=== PATIENT | male | born 1935 | race Caucasian/White ===

== ENCOUNTER 2022-06-03 13:05 | Inpatient (IN) | payer OTHER, SELFPAY ==
[2022-06-03] VITALS (9 sets, daily range): BP systolic 101–125; BP diastolic 57–77; PULSE 74–89; RESP 16–19; TEMP 36.5–37.4; O2SAT 95–96; BMI 21.4; BMI 20.9
--- NOTE | 2022-06-03 13:20 | RAD_ITS ---
STUDY: X-RAY CHEST REASON FOR EXAM: Male, 86 years old. Chest pain. TECHNIQUE: Single AP portable view of the chest. COMPARISON: None. FINDINGS: EKG electrodes are seen. The lungs are clear and expanded. There is no demonstrated pleural abnormality. Normal size heart. Normal mediastinum and thiago. Normal visualized pulmonary arteries. There is atherosclerotic tortuosity of the aortic arch and descending thoracic aorta. There are diffuse degenerative changes of the visualized thoracic spine. There is degenerative osteoarthritis of the bilateral shoulders. There is no demonstrated abnormality of the visualized soft tissue structures of the upper abdomen. RAD/Chest 1 View (Portable) IMPRESSION: No acute abnormality is seen. Electronically Signed: Hemant Elaine MD at 13:33 EST ,
--- NOTE | 2022-06-03 13:25 | ED.VIS.CHEST ---
HPI History of Present Illness Chief Complaint: Chest Pain Detail of Chief Complaint: Nonexertional. No dyspnea. Informant: patient Onset/Context/Timing Onset: Days Activity at onset: gradual Timing: Intermittent Quality: Positive for Indigestion Location: Substernal Current Severity: Mild Maximum Severity: Mild Worsened By: - (Primarily supine.); Not Worsened By Exertion, Movement of Arm, Movement of Torso, Eating, Palpation, Breathing or Coughing Relieved By: Nothing Associated Symptoms: Positive for Acid Reflux; Negative for Nausea, Vomiting, Diaphoresis, Dyspnea, Cough, Fever, Lightheadedness or Palpitations Narrative Narrative: 85-year-old male past medical history of reflux. He has been using a vibrating device for vascular pain in his back. States he thinks that caused him to have an elevated heart rate. He quit using it. Had some chest discomfort for last several days. Okay at rest. Not associated with exertion. No nausea or diaphoresis. Does not radiate to his arm back or jaw. Worse supine. Prior Similar Symptoms: Yes Recent Illness/Hospitalization: No CVD Risk Factors: Negative for Hypertension, Diabetes, Hypercholesterolemia, Family History 1' </=55 or Smoking PE Risk Factors: Negative for Recent Travel/Surgery, Recent Immobilization, Prior DVT or PE, Cancer or OCP + Smoking + >/=35 TAD Risk Factors: Negative for Marfan's Syndrome [facility] Medical History GERD (gastroesophageal reflux disease) Home Medications omeprazole magnesium 20 mg tablet,delayed release (Prilosec OTC) 20 mg PO QWEEK 06/03/22 [History Last Taken Unknown] Allergy/AdvReac Type Severity Reaction Status Date / Time No Known Allergies Allergy Verified 06/03/22 13:11 Social History Smoking Status: Never smoker ROS ROS ED ROS Narrative Chest pain supine. Nonexertional. No shortness of breath. Review of Systems ROS Unobtainable: Denies due to encephalopathy Constitutional Constitutional ED: Denies chills or fever(s) Eyes Eyes: Reports none ENT ENT ED: Denies ear pain or rhinorrhea Cardiovascular Cardiovascular: Reports as per HPI and chest pain; Denies palpitations or racing heartbeat Respiratory/Chest Respiratory/Chest: Denies cough or dyspnea Gastrointestinal Gastrointestinal: Denies constipation, diarrhea, melena, nausea or vomiting Genitourinary Genitourinary ED: Denies dysuria or hematuria Musculoskeletal Musculoskeletal: Denies arthralgias Integumentary Denies abscess Neurologic Neurologic: Denies headache(s) Psychiatric Psychiatric: Denies anxiety Endocrine Endocrinology: Denies cold intolerance Hematologic/Lymphatic Hematologic/Lymphatic: Denies easy bleeding or easy bruising Allergic/Immunologic Allergic/Immunologic ED: Denies mouth swelling or tongue swelling EXAM Physical Exam Narrative Exam Narrative: 86-year-old male known no acute distress. Vital signs stable afebrile. Pulse ox 96% room air no hypoxia. H EENT exam unremarkable. Moist with members. Neck nontender no JVD. Lungs clear to auscultation bilateral. Heart regular rhythm rate about 85 no murmur. Chest wall nontender. Abdomen soft nontender. Moving all 4 extremities. Calves are nontender without edema or cords. Neurologically patient is awake and alert with no focal motor deficit. Const Vital Signs: 06/03/22 13:07 06/03/22 13:12 06/03/22 13:18 Temperature 97.7 F L Temperature Source Oral Pulse Rate 89 Respiratory Rate 16 Respiratory Effort Normal Non-Labored Blood Pressure 115/63 Blood Pressure Mean 80 Pulse Ox 96 96 Oxygen Delivery Method Room Air Room Air 06/03/22 13:37 06/03/22 14:26 Temperature 97.7 F L Temperature Source Oral Pulse Rate 84 74 Respiratory Rate 19 H 18 Respiratory Effort Blood Pressure 101/58 L 105/57 L Blood Pressure Mean 72 73 Pulse Ox 95 96 Oxygen Delivery Method Room Air Room Air Positive well nourished and well developed; Negative for obese, cachectic, contractures or unkempt General Appearance ED: well developed and NAD; Negative for unkempt, cachectic, contractures or pallor Nutritional Appearance: Negative for cachectic or obese HEENT Reports moist mucous membranes; Denies dry mucous membranes normocephalic and atraumatic; Negative for trauma or tenderness Mouth ED: No dry mucous membranes Mouth: No dry mucous membranes Eyes PERRL and EOMs intact bilaterally General Eye ED: Negative for pale conjunctiva, scleral icterus or other Neck no lymphadenopathy, supple and no JVD General: Negative for tenderness Chest Wall inspection of chest normal and palpation of chest normal Chest: Negative for tenderness Resp normal respiratory effort and clear to auscultation bilaterally Effort and Inspection: Negative for respiratory distress Auscultation: Negative for rales, rhonchi or wheezes Cardio regular rate, regular rhythm, S1 normal heart sound, S2 normal heart sound and no murmurs Rate: Negative for bradycardia or tachycardic Rhythm: Negative for abnormal rhythm Peripheral Pulses: pulses 2+ throughout GI normal to inspection, nondistended, normoactive bowel sounds, soft to palpation, non-tender, non-distended and no masses Auscultation: Negative for hyperactive bowel sounds Back/Spine no CVA tenderness and no thoracic nor lumbar tenderness General Back: Negative for CVA tenderness Cervical Spine: Negative for cervical spine tenderness Extremity normal to inspection General Extremety ED: Negative for edema or pulses abnormal General Extremity: Negative for edema or pulses abnormal Neuro oriented x3 and CN's II-XII intact bilaterally Sensorium / Orientation: awake, alert, oriented to person, oriented to place and oriented to time; Negative for confused, lethargic, stuporous or other Motor Exam: strength 5/5 throughout Psych mental status grossly normal Appearance: Negative for unkempt Attitude: No agitated Mood & Affect: Negative for depressed, anxious or tearful Skin no rashes or lesions noted and no wounds General Skin Exam: Negative for jaundice or pallor Rashes: No rashes noted Trauma: Negative for abrasion or laceration Heart Score History: Slightly/Non-Suspicious ECG: Normal Age: >/= 65 years Risk Factors: No Risk Factors Troponin: </= Normal Limit Score: 2 MDM MDM MDM Narrative Medical decision making narrative: 86-year-old male non-smoker with nonexertional chest discomfort. This is atypical chest pain. No dyspnea. He will undergo cardiac work-up. Currently symptom-free and pain-free. Patient is still very active and is having no exertional symptoms. No prior DVT or PE or risk factors. Repeat exam patient is doing well at 3:15 PM. I went over his test results. His atypical pain with an elevated troponin. I explained he and his family I cannot say it is or is not cardiac in etiology. I will speak to the hospitalist he will be admitted for further evaluation and work-up. History & Record Review Discussion w/independent historian: Patient and Family Lab Data Attestation: I reviewed the patient's lab results. Lab results narrative: CBC showed a white count 12.9. H&H of 13.1 and 39.5. Electrolytes unremarkable sodium 135. Gap of 8 BUN of 20 creatinine 1.3. Glucose 223. Troponin is elevated 116. No old labs available for comparison. No prior troponins for comparison. Labs: Laboratory Results - last 24 hr 06/03/22 06/03/22 12:32 12:32 WBC 12.9 H RBC 4.12 L Hgb 13.1 Hct 39.5 L MCV 95.9 H MCH 31.8 MCHC 33.2 RDW Std Deviation 49.1 H RDW Coeff of Luis Alberto 13.8 Plt Count 233 MPV 10.0 Immature Gran % (Auto) 0.400 Neut % (Auto) 71.4 H Lymph % (Auto) 8.8 L [place] % (Auto) 19.1 H Eos % (Auto) 0.1 Baso % (Auto) 0.2 Absolute Neuts (auto) 9.2 H Absolute Lymphs (auto) 1.13 Nucleated RBC % 0 Differential Comment SCANNED Diff Path Review May foll Sodium 135 L Potassium 3.9 Chloride 103 Carbon Dioxide 24.0 Anion Gap 8 BUN 20 H Creatinine 1.30 Estim Creat Clear Calc 36.81 Est GFR (MDRD) Af Amer 67 Est GFR (MDRD) Non-Af 56 L BUN/Creatinine Ratio 15.4 Glucose 223 H Calcium 8.8 Troponin I High Sens 116 H Radiography Chest X-Ray - ED: 1 View, Read by ED Physician, Read by Radiologist, Heart, Lungs, Mediastinum, Bony Structures, No Acute Disease and Chronic Changes Diagnostic Testing: Clinical Impression(s) from Imaging Studies Chest X-Ray 06/03/22 13:20 IMPRESSION: No acute abnormality is seen. Electronically Signed: Hemant Elaine MD at 13:33 EST , Chest x-ray, portable, single view interpreted by myself and the radiologist shows no acute abnormality. Chronic changes. Rhythm Strip Rhythm Strip: Sinus Rhythm Rate: 85 Ectopy: None EKG Initial EKG: Attestation: I personally reviewed and interpreted this EKG as follows: Interpretation: Sinus Rhythm and No Acute Injury Pattern Comments: Normal sinus rhythm rate 85 no signs of acute NM or ischemia. No old EKGs available for comparison. Prior EKG tracings: not available for review Prior: No Prior Discharge Plan Triage Chief Complaint: Chest Pain ED Provider: Denis Hastings Dx/Rx/DC Orders Clinical Impression: Chest pain, Elevated troponin Prescriptions: No Action omeprazole magnesium [Prilosec OTC] 20 mg Tablet,Delayed Release (Dr/Ec) 20 mg PO QWEEK Primary Care Provider: Theo Francois Referrals: Theo Francois DO [Primary Care Provider] - Disposition Disposition: Acute Care Hospital [facility]
[2022-06-03 13:29] LABS: Absolute Lymphocyte Count 1.13 X10^3/uL (0.83-4.51); Absolute Neutrophil Count 9.2 X10^3/uL (2.0-7.7); Basophil# 0.03 X10^3/uL; Basophil% 0.2 % (0-1); Eosinophil# 0.01 X10^3/uL; Eosinophils% 0.1 % (0-5); Hematocrit 39.5 % (40-54); Hemoglobin 13.1 g/dL (13.0-16.5); Lymphocyte # 1.13 X10^3/ul (0.83-4.51); Lymphocyte % 8.8 % (19-41); Mean Corp Hgb Conc 33.2 g/dL (32-36); Mean Corpuscular Hgb 31.8 pg (27.0-32.0); Mean Corpuscular Volume 95.9 fL (80-94); Monocyte# 2.46 X10^3/uL; Monocyte% 19.1 % (0-10); NRBC Flagged by Analyzer 0 % (0-5); Neutrophil # 9.19 X10^3/uL (2.7-7.7); Neutrophil % 71.4 % (47-70); POSITIVE DIFFERENTIAL YES; Platelet Count 233 K/mm3 (150-450); RBC Distribution Width CV 13.8 % (11.6-14.6); RBC Distribution Width SD 49.1 fl (35.1-43.9); Red Blood Count 4.12 M/mm3 (4.6-6.2); White Blood Count 12.9 K/mm3 (4.4-11.0)
[2022-06-03 13:34] LABS: Differential Indicated SCAN CRITERIA MET
[2022-06-03 13:39] LABS: Anion Gap 8 (5-15); BUN 20 mg/dL (7-18); BUN/Creat Ratio 15.4 RATIO (10-20); Calcium,Total 8.8 mg/dL (8.5-10.1); Chloride 103 mmol/L (98-107); EST Glomerular Filtration Rate 56 mL/min (>60); Est Glom Filt Rate - Afr Amer 67 mL/min (>60); Estimated Creatinine Clearance 36.81 ml/min; Glucose 223 mg/dL (74-106); Potassium 3.9 mmol/L (3.5-5.1); Sodium Level 135 mmol/L (136-145); Troponin-I HS (w/2H Reflex) 116 pg/mL (3.0-78.0)
[2022-06-03 14:04] LABS: Differential Comment SCANNED
--- NOTE | 2022-06-03 15:17 | PCM.HP.STD ---
HPI - General General Date of Admission: 06/03/22 Date of Service: 06/03/22 Chief Complaint: chest pain HPI Narrative JEREMY GONZALEZ, is a 86 M with a PMH as outlined who presents via the ED on 06/03/2022 with a complaint of chest pain. Chest pain had been going on for several days. He says he used a vibrating device for back pain and he thought it had stimulated palpitations. He subsequently started having chest pain which had been going for several days. He had nausea or shortness of breath or increased sweating and pain did not radiate anywhere. He has not had any heart disease in the past. Review of systems otherwise negative. Vitals in the ED were blood pressure 105/57, pulse rate of 74, respiratory rate of 18 and oxygen sats of 96% on room air. CBC showed WBC of 12.9 and hemoglobin of 13.1 as well as platelets of 233. Chemistry showed sodium of 135 with BUN of 20 and creatinine of 1.3. Initial troponin was 116. Chest x-ray showed no acute cardiopulmonary process and EKG showed no acute ST changes. He has been admitted to be managed for chest pain rule out ACS. [facility] Medical History (Updated 06/04/22 @ 12:18 by Joya Lambert) Atherosclerosis of coronary artery of [place] heart without angina pectoris GERD (gastroesophageal reflux disease) Home Medications omeprazole magnesium 20 mg tablet,delayed release (Prilosec OTC) 20 mg PO QWEEK GERD 06/03/22 [History Last Taken 06/03/22] Allergy/AdvReac Type Severity Reaction Status Date / Time No Known Allergies Allergy Verified 06/03/22 13:11 Surgical History (Updated 06/04/22 @ 12:18 by Joya Lambert) History of appendectomy History of coronary artery stent placement (~06/04/22) Social History Smoking Status: Never smoker ROS Constitutional Constitutional: Denies anorexia, chills, fatigue or fever(s) Eyes Eyes: Denies change in vision ENT HEENT: Denies dysphagia, headache(s), nasal congestion or sore throat Cardiovascular Cardiovascular: Reports chest pain; Denies dyspnea on exertion, edema, lightheadedness, orthopnea, palpitations, rapid heart rate or syncope Respiratory/Chest Respiratory/Chest: Denies cough, dyspnea, productive cough, shortness of breath at rest or shortness of breath with exertion Gastrointestinal Gastrointestinal: Denies abdominal pain, diarrhea, nausea or vomiting Genitourinary Genitourinary: Denies burning urination or dysuria Musculoskeletal Musculoskeletal: Denies arthralgias, joint pain or joint swelling Neurologic Neurologic: Denies confusion, dizziness, focal weakness, headache(s), numbness, seizures or syncope Psychiatric Psychiatric: Denies anxiety Endocrine Endocrinology: Denies change in body appearance Hematologic/Lymphatic Hematologic/Lymphatic: Denies anemia Vital Signs Vital Signs Vital Signs: 06/03/22 13:07 06/03/22 13:12 06/03/22 13:18 Temperature 97.7 F L Temperature Source Oral Pulse Rate 89 Respiratory Rate 16 Respiratory Effort Normal Non-Labored Blood Pressure 115/63 Blood Pressure Mean 80 Pulse Ox 96 96 Oxygen Delivery Method Room Air Room Air 06/03/22 13:37 06/03/22 14:26 Temperature 97.7 F L Temperature Source Oral Pulse Rate 84 74 Respiratory Rate 19 H 18 Respiratory Effort Blood Pressure 101/58 L 105/57 L Blood Pressure Mean 72 73 Pulse Ox 95 96 Oxygen Delivery Method Room Air Room Air Weight Weight: 140 lb 10.479 oz Body Mass Index (BMI) 21.4 Physical Exam Const alert, oriented x3, no apparent distress and average body habitus HEENT normocephalic, head/scalp atraumatic and hearing grossly normal bilaterally Mouth: oral and palatal mucosa normal Eyes PERRL, EOMs intact bilaterally and conjunctivae normal Neck no lymphadenopathy and supple Resp normal respiratory effort, no retractions, no use of accessory muscles and clear to auscultation bilaterally Cardio regular rate, regular rhythm, S1 normal heart sound, S2 normal heart sound and no murmurs GI normal to inspection, nondistended, normoactive bowel sounds, soft to palpation, non-tender and non-distended Extremity normal to inspection, full ROM and no clubbing, cyanosis or edema Neuro oriented x3, CN's II-XII intact bilaterally, moves all extremities and no focal motor deficits Sensorium / Orientation: awake and alert Motor Exam: strength 5/5 throughout Psych affect normal Results Lab / Micro Data Result Diagrams: 06/04/22 04:16 06/04/22 04:16 Labs: Laboratory Results - last 24 hr 06/03/22 12:32: WBC 12.9 H, RBC 4.12 L, Hgb 13.1, Hct 39.5 L, MCV 95.9 H, MCH 31.8, MCHC 33.2, RDW Std Deviation 49.1 H, RDW Coeff of Luis Alberto 13.8, Plt Count 233, MPV 10.0, Immature Gran % (Auto) 0.400, Neut % (Auto) 71.4 H, Lymph % (Auto) 8.8 L, [place] % (Auto) 19.1 H, Eos % (Auto) 0.1, Baso % (Auto) 0.2, Absolute Neuts (auto) 9.2 H, Absolute Lymphs (auto) 1.13, Nucleated RBC % 0, Differential Comment SCANNED, Diff Path Review July06/03/22 12:32: Sodium 135 L, Potassium 3.9, Chloride 103, Carbon Dioxide 24.0, Anion Gap 8, BUN 20 H, Creatinine 1.30, Estim Creat Clear Calc 36.81, Est GFR (MDRD) Af Amer 67, Est GFR (MDRD) Non-Af 56 L, BUN/Creatinine Ratio 15.4, Glucose 223 H, Calcium 8.8, Troponin I High Sens 116 H Rhythm Strip Rhythm Strip: Sinus Rhythm Rate: 85 Ectopy: None Radiology Impression Chest X-Ray 06/03/22 13:20 IMPRESSION: No acute abnormality is seen. Electronically Signed: Heamnt Elaine MD at 13:33 EST Reading Location ID and State: [address] [place] [address] , Service support , Assessment & Plan Assessment/Plan (1) Chest pain: (2) Elevated troponin: (3) Non-ST elevation (NSTEMI) myocardial infarction: PLAN: Plan #Nonstemi Admit to PCU. Patient started having complaint of chest pain a few days ago which has persisted. Has not had chest pain like this before. Initial troponin was 116. EKG showed no acute ST changes. We will cycle troponins. P.o. aspirin 81 mg daily. Sublingual nitroglycerin. Consult cardiology. 2D echo. #DVT prophylaxis: Lovenox CODE STATUS: Full code Patient and his family counseled extensively about different types of CODE STATUS including full code, DNR CCA and DNR CCA. Patient elects to be full code. Total [id number] time 17 minutes. Charges/Coding Visit Charges Inpatient E&M: 67251 Init Hosp L3 Procedures Hospitalists Procedures: 70138 Advncd Care Plan 30 Min
[2022-06-03 15:20] LABS: Reflex Troponin-HS? (from REC) Y
[2022-06-03 16:21] LABS: Troponin-I HS 113 pg/mL (3.0-78.0)
[2022-06-03 19:26] LABS: Troponin-I HS 120 pg/mL (3.0-78.0)
--- NOTE | 2022-06-03 19:54 | CON.PCM.CA_ITS ---
Assessment & Plan Assessment/Plan (1) Chest pain: PLAN: The patient presents with chest pain. The present time it is concerning for angina pectoris as there is been no other definitive etiology to explain it. He has undergone cardiovascular evaluation with cardiac enzymes and ECGs and a chest x-ray. His cardiac enzymes are elevated and appear to be without significant change. This does raise concern as to whether or not he has had some form of underlying acute coronary syndrome event. The same time he does need to be monitored for any obvious noncardiovascular issues that would explain these findings. He will be asked undergo further evaluation. This will include a transthoracic echocardiogram to evaluate his left ventricular wall motion and systolic function. He was also asked to consider further evaluation with a diagnostic cardiac catheterization to evaluate for underlying CAD. This was discussed with the patient, his spouse, and his son. They state they want to discuss with other family members prior to proceeding in that fashion. In the interim he will continue medical therapy. He has been placed on aspirin 81 mg p.o. daily as well as atorvastatin 40 mg p.o. daily. He is also receiving subcutaneous enoxaparin. He can be considered for other agents to include nitrates if needed as well as consideration for beta-rob therapy. (2) Non-ST elevation (NSTEMI) myocardial infarction: PLAN: The patient's cardiac enzymes are concerning for a non-ST segment elevation PA. He has had no other etiologies such as CVA, thromboembolic disease, renal insufficiency, sepsis, etc. to definitively explain his findings thus far. Thus he will continue a cardiovascular monitoring program. He will continue conservative medical management. He will proceed with noninvasive valuation at this time. He is considering his options with respect to diagnostic cardiac catheterization. (3) GERD (gastroesophageal reflux disease): PLAN: The patient states that he was diagnosed with GERD by an EGD in the past. He admits he did not stay on his PPI as recommended. It is unclear whether this is contributing to any of his symptoms at this time. He is being placed back on a PPI at this time. Addt'l Comments The above was discussed and reviewed with the patient, his spouse, and son. Comment: Time spent the patient's overall evaluation with respect to valuation, examination, review of medical records available, placing orders, documentation, and discussion with the patient and his family members present, etc.: 45 minutes. HPI Consult Data Date of Consult: 06/03/22 HPI Narrative HPI Narrative: JEREMY GONZALEZ, is a 86 year old white male who presents for cardiovascular consultation based upon concerns of chest discomfort and abnormal high- sensitivity troponin I levels concerning for an acute non-ST segment elevation PA. The patient states that he underwent evaluation and care of his esophagus many years ago. He was told to remain on Prilosec for life. He chose not to do so. 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 However recently he has noted episodes of chest discomfort in the center of his chest which he states radiates to his neck. It does not necessarily radiate into the jaw or the upper extremities. He does not believe it is associated with nausea or emesis or diaphoresis. He does not recall any acute respiratory related issues. He was concerned that this may have been his esophageal issue. Based upon his ongoing symptoms he presented to the hospital for evaluation. He underwent evaluation in the emergency department. He was found to have an elevated high-sensitivity troponin I level 116. His ECG demonstrated sinus rhythm with a nonspecific ST segment change. He was subsequently placed in the PCU for further evaluation. His high-sensitivity troponin I level decreased to 113 and then subsequently increased to 120. A follow-up ECG demonstrated normal sinus rhythm with no acute ECG changes. He had a chest x-ray performed which suggested no acute cardiopulmonary disease process on review. It did appear that his thoracic aorta may be somewhat tortuous. He states he has had no other cardiovascular testing that he is aware of. He denies any history of orthopnea or PND or ongoing peripheral pitting edema. There is been no near-syncope or syncope. At the present time he appears to be resting comfortably with no acute symptoms. His and son are with him. [facility] Medical History (Updated 06/03/22 @ 20:[address] Moy Bahena MD) GERD (gastroesophageal reflux disease) Home Medications omeprazole magnesium 20 mg tablet,delayed release (Prilosec OTC) 20 mg PO QWEEK GERD 06/03/22 [History Last Taken 06/03/22] Allergy/AdvReac Type Severity Reaction Status Date / Time No Known Allergies Allergy Verified 06/03/22 13:11 Surgical History (Updated 06/03/22 @ 16:06 by Tiesha Schuler) History of appendectomy Social History Smoking Status: Never smoker ROS Constitutional Constitutional: Reports as per HPI Eyes Eyes: Reports as per HPI ENT HEENT: Reports as per HPI Cardiovascular Cardiovascular: Reports chest pain at rest Respiratory/Chest Respiratory/Chest: Reports as per HPI Gastrointestinal Gastrointestinal: Reports as per HPI Genitourinary Genitourinary: Reports as per HPI Musculoskeletal Musculoskeletal: Reports as per HPI Integumentary Integumentary: Reports as per HPI Neurologic Neurologic: Reports as per HPI Physical Exam Const alert, oriented x3 and no apparent distress Orientation / Consciousness: awake HEENT normocephalic, head/scalp atraumatic and hearing grossly normal bilaterally Eyes PERRL, EOMs intact bilaterally, conjunctivae normal and no scleral icterus Neck full ROM, supple and no JVD Carotids: normal carotid upstroke Resp normal respiratory effort and clear to auscultation bilaterally Cardio regular rate, regular rhythm, S1 normal heart sound and S2 normal heart sound GI normal to inspection, nondistended, normoactive bowel sounds Extremity no pedal edema Skin no rashes or lesions noted Psych mental status grossly normal Risk Stratification Risk Stratification Applicable: Yes Age >/= 65: Yes >/= 3 CAD Risk Factors (HTN, HLD, DM, family hx of CAD, or current smoker): No Aspirin Use in the Past 7 Days: No Severe Angina (>/= episodes in 24 hours): Yes EKG ST Changes >/= 0.5mm: No Positive Cardiac Marker: Yes ANGELA Risk Stratification Score: 3 ANGELA % Risk: 13% Risk Procedure Criteria Type of Procedure Procedure Type: Elective Elective Risks - COVID COVID Risk Discussion: The surgeon/proceduralist and patient have discussed in detail the risk of exposure to and/or potential harm posed by the COVID-19 virus with having a surgery/procedure at this time versus the risk of delaying the surgery/procedure. It is not possible to know either the risk of delaying the surgery or procedure or chance of getting an infection with perfect accuracy, but a joint decision was made between the patient and the surgeon/proceduralist to proceed at this time with the scheduled surgery/procedure as indicated on the consent form. Objective Data Vital Signs: Vital Signs Temp Pulse Resp BP Pulse Ox O2 Del Method 98.0 F 83 16 125/77 H 95 Room Air 06/03/22 16:00 06/03/22 16:00 06/03/22 16:00 06/03/22 16:00 06/03/22 17:39 06/03/22 19:34 Oxygen Delivery Method Room Air Weight: 133 lb 13.129 oz Body Mass Index (BMI) 20.9 Intake & Output: Intake and Output for Last 24 Hours 06/01/22 06/02/22 06/03/22 23:59 23:59 23:59 Intake Total 300 / 300 Balance 300 / 300 Lab / Micro Data Result Diagrams: 06/03/22 12:32 06/03/22 12:32 Labs: Laboratory Results - last 24 hr 06/03/22 12:32: WBC 12.9 H, RBC 4.12 L, Hgb 13.1, Hct 39.5 L, MCV 95.9 H, MCH 31.8, MCHC 33.2, RDW Std Deviation 49.1 H, RDW Coeff of Luis Alberto 13.8, Plt Count 233, MPV 10.0, Immature Gran % (Auto) 0.400, Neut % (Auto) 71.4 H, Lymph % (Auto) 8.8 L, [place] % (Auto) 19.1 H, Eos % (Auto) 0.1, Baso % (Auto) 0.2, Absolute Neuts (auto) 9.2 H, Absolute Lymphs (auto) 1.13, Nucleated RBC % 0, Differential Comment SCANNED, Diff Path Review July06/03/22 12:32: Sodium 135 L, Potassium 3.9, Chloride 103, Carbon Dioxide 24.0, Anion Gap 8, BUN 20 H, Creatinine 1.30, Estim Creat Clear Calc 36.81, Est GFR (MDRD) Af Amer 67, Est GFR (MDRD) Non-Af 56 L, BUN/Creatinine Ratio 15.4, Glucose 223 H, Calcium 8.8, Troponin I High Sens 116 H 06/03/22 15:30: Troponin I High Sens 113 H 06/03/22 18:50: Troponin I High Sens 120 H Rhythm Strip Rhythm Strip: Sinus Rhythm Rate: 85 Ectopy: None Cardiology Labs/Tests 06/03/22 12:32: WBC 12.9 H, RBC 4.12 L, Hgb 13.1, Hct 39.5 L, MCV 95.9 H, MCH 31.8, MCHC 33.2, Plt Count 233, MPV 10.0, Immature Gran % (Auto) 0.400, Neut % (Auto) 71.4 H, Lymph % (Auto) 8.8 L, [place] % (Auto) 19.1 H, Eos % (Auto) 0.1, Baso % (Auto) 0.2, Absolute Neuts (auto) 9.2 H, Nucleated RBC % 0 06/03/22 12:32: Sodium 135 L, Potassium 3.9, Chloride 103, Carbon Dioxide 24.0, Anion Gap 8, BUN 20 H, Creatinine 1.30, Est GFR (MDRD) Af Amer 67, Est GFR ( MDRD) Non-Af 56 L, BUN/Creatinine Ratio 15.4, Glucose 223 H, Calcium 8.8 Rhythm: Sinus rhythm EKG: As noted above Radiography Diagnostic Testing: Radiology Impression Chest X-Ray 06/03/22 13:20 IMPRESSION: No acute abnormality is seen. Electronically Signed: Hemant Elaine MD at 13:33 EST ,
[2022-06-03] MEDS: Atorvastatin Calcium 40 MG Tablet PO (21:03)
[2022-06-03] MEDS: Metoprolol Tartrate 25 MG Tablet PO (21:03)
[2022-06-04] VITALS (22 sets, daily range): BP systolic 91–135; BP diastolic 52–103; PULSE 48–80; RESP 10–23; TEMP 36.2–36.8; O2SAT 93–100
[2022-06-04 05:24] LABS: Absolute Lymphocyte Count 1.17 X10^3/uL (0.83-4.51); Absolute Neutrophil Count 7.1 X10^3/uL (2.0-7.7); Basophil# 0.04 X10^3/uL; Basophil% 0.3 % (0-1); Eosinophil# 0.02 X10^3/uL; Eosinophils% 0.2 % (0-5); Hematocrit 38.7 % (40-54); Hemoglobin 12.9 g/dL (13.0-16.5); Lymphocyte # 1.17 X10^3/ul (0.83-4.51); Lymphocyte % 10.1 % (19-41); Mean Corp Hgb Conc 33.3 g/dL (32-36); Mean Corpuscular Hgb 31.2 pg (27.0-32.0); Mean Corpuscular Volume 93.7 fL (80-94); Mean Platelet Vol. 10.1 fl (6.2-12.0); Monocyte# 3.22 X10^3/uL; Monocyte% 27.9 % (0-10); NRBC Flagged by Analyzer 0 % (0-5); Neutrophil # 7.06 X10^3/uL (2.7-7.7); Neutrophil % 61.2 % (47-70); POSITIVE DIFFERENTIAL YES; Platelet Count 222 K/mm3 (150-450); RBC Distribution Width CV 14.2 % (11.6-14.6); Red Blood Count 4.13 M/mm3 (4.6-6.2); White Blood Count 11.6 K/mm3 (4.4-11.0)
[2022-06-04 05:26] LABS: Differential Indicated SCAN CRITERIA MET
--- NOTE | 2022-06-04 05:55 | ECHOD_ITS ---
Reason For Study: CHEST PAIN Procedure This was a 2D Doppler, Color Flow transthoracic echocardiogram. The exam was of adequate technical quality. Exam performed portable in ICU/CCU. Left Ventricle Normal LV size. Left ventricular systolic function is lower limits of normal. The estimated ejection fraction is 50 %. Diastolic function is indeterminate. No regional wall motion abnormalities noted. Right Ventricle Normal RV size. Normal systolic function. Atria The left atrium is mildly enlarged. Normal right atrium. No doppler evidence for ASD. Mitral Valve There is no mitral annular calcification. Normal mitral valve. Mild (1+) mitral valve insufficiency. Tricuspid Valve Normal tricuspid valve. Mild tricuspid valve insufficiency. Right ventricular systolic pressure estimated to be 31 mmHg. Aortic Valve Trisinus/trileaflet aortic valve. Normal aortic valve. Trivial aortic valve insufficiency. Pulmonic Valve The pulmonic valve is not well visualized. Mild (1+) pulmonic valve insufficiency. Great Vessels Normal sized aortic root. Pericardium/Pleural No pericardial effusion. MMode/2D Measurements & Calculations LVIDd: 4.5 cm IVSd: 0.98 cm Ao root diam: 3.3 cm LVIDs: 2.8 cm LVPWd: 0.85 cm RVDd: 3.3 cm FS: 36.9 % LAV(MOD-bp): 65.4 ml LVAd ap4: 27.6 cm2 LVAd ap2: 27.4 cm2 LAV(MOD-bp) Indexed: 38.5 ml/m2 LVLd ap4: 7.1 cm LVLd ap2: 7.3 cm LAV(MOD-sp2): 61.7 ml EDV(MOD-sp4): 89.3 ml EDV(MOD-sp2): 88.9 ml LAV(MOD-sp4): 67.1 ml EDV(sp4-el): 90.6 ml EDV(sp2-el): 87.4 ml LVAs ap4: 18.3 cm2 LVAs ap2: 18.1 cm2 LVLs ap4: 6.1 cm LVLs ap2: 6.2 cm ESV(MOD-sp4): 46.1 ml ESV(MOD-sp2): 45.8 ml ESV(sp4-el): 46.6 ml ESV(sp2-el): 45.0 ml EF(MOD-sp4): 48.4 % EF(MOD-sp2): 48.5 % EF(sp4-el): 48.5 % SV(MOD-sp4): 43.2 ml SV(MOD-sp2): 43.1 ml SV(sp4-el): 44.0 ml LA dimension(2D): 3.0 cm LA A4 area: 22.2 cm2 RA A4 area: 15.4 cm2 Doppler Measurements & Calculations MV E max tristian: 88.3 cm/sec Ao V2 max: 124.6 cm/sec AI max tristian: 377.4 cm/sec Ao max P.2 mmHg AI max P.0 mmHg Ao V2 mean: 85.1 cm/sec AI dec slope: 134.5 cm/sec2 Ao mean P.3 mmHg AI P1/2t: 822.0 msec Ao V2 VTI: 25.6 cm AV (velocity ratio): 0.67 LV V1 max: 73.7 cm/sec PA V2 max: 74.9 cm/sec PI dec slope: 277.3 cm/sec2 LV V1 max P.2 mmHg LV V1 mean P.0 mmHg LV V1 mean: 47.0 cm/sec LV V1 VTI: 17.2 cm TR max tristian: 240.6 cm/sec TR max P.2 mmHg ECHO/Echo Complete Interpretation Summary Left ventricular systolic function is lower limits of normal. The estimated ejection fraction is 50 %. The left atrium is mildly enlarged. Mild (1+) mitral valve insufficiency. Mild tricuspid valve insufficiency. Trivial aortic valve insufficiency. Mild (1+) pulmonic valve insufficiency. Right ventricular systolic pressure estimated to be 31 mmHg. Diastolic function is indeterminate. Ordering Physician: Moy Bahena Referring Physician: Theo Francois Performed By: Carolina Greenwood, FLORI, RVT
[2022-06-04 06:01] LABS: Anion Gap 9 (5-15); BUN 19 mg/dL (7-18); BUN/Creat Ratio 18.6 RATIO (10-20); Calcium,Total 8.8 mg/dL (8.5-10.1); Chloride 103 mmol/L (98-107); Creatinine, Serum 1.02 mg/dL (0.70-1.30); EST Glomerular Filtration Rate 73 mL/min (>60); Est Glom Filt Rate - Afr Amer 89 mL/min (>60); Estimated Creatinine Clearance 44.63 ml/min; Glucose 111 mg/dL (74-106); Potassium 4.2 mmol/L (3.5-5.1); Sodium Level 135 mmol/L (136-145)
[2022-06-04] MEDS: Metoprolol Tartrate 25 MG Tablet PO (07:14)
[2022-06-04] MEDS: Aspirin 81 MG TAB.CHEW PO (08:41)
--- NOTE | 2022-06-04 10:43 | CL.I_ITS ---
Patient Name: JEREMY GONZALEZ Study Date: 06/04/2022 Performing: Leigha Trejo MD Ht: 67 inches 170.18 cm : 1935 Wt: 133.82 lbs 60.7 kg Age: 86 Gender: male BSA: 1.7 PROCEDURE(S) PERFORMED IC12-(12020/C9600)EFRAIN W/WO PTCA, SINGLE CORONARY ARTERY CLINICAL PROFILE AND CO-MORBIDITIES Indications: ACS <= 24 hrs Heart Failure: None Stress/Imaging Stress/Image Study Performed: No Angina Classification Anginal Classification w/in 2 Weeks: CCS IV CAD Presentations: Non-STEMI. CONCLUSIONS Successful EFRAIN Prox LAD using Resolute Dwaine 3.5x30 mm, optimized proximally using 4.0 mm balloon RECOMMENDATIONS ASA Indefinitley Plavix for at least 12 months DESCRIPTION OF PROCEDURE The patient arrived to the procedure lab. The risks and benefits of the procedure as well as a full description of our services here and current unavailability of surgical backup were fully explained to the patient and/or their significant other prior to the catheterization. The Timeout was completed, verifying the correct patient and procedure. The patient's procedural site was prepped and draped in the usual fashion. Local anesthetic was given subcutaneously to right radial region with Lidocaine 2% Using a modified Seldinger technique,arterial access was obtained via the right radial artery, a 6Fr sheath was inserted. Right Coronary Artery selective angiography was then performed in multiple views using a 5 Fr. 4.0 [place] catheter. Left Coronary Artery selective angiography was performed in multiple views using a 5 Fr. JL3.5 catheter.The images were reviewed and options discussed. A decision was then made to proceed with an Intervention, IVUS or other adjunct procedure. XB3 Guide catheter was inserted and engaged into the LCA. Runthrough Guide wire was advanced to the LAD. 3.5x30 Resolute [place] Drug Eluting stent was inserted. Drug Eluting stent was advanced across the lesion in the LAD, mid. Angiogram performed post stent deployment. 3.5x20 NC Emerge Balloon catheter was inserted. Balloon catheter was inserted post stent. 4x8 NC Euphora Balloon catheter was inserted. Balloon catheter was advanced across lesion in the LAD, mid. Angiogram performed post balloon dilatation. The arterial sheath was pulled and a TR Band was applied for hemostasis. 10cc of air INTERVENTION INFORMATION LESION SITE: LAD (Mid) Lesion Complexity: High/C, lesion length: 28 mm, culprit lesion: Yes, In-stent restenosis: No Pre Stenosis: 90 % Pre intervention ANGELA flow: 3 PROCEDURE: Drug Eluting Stent with post dilatation Post Stenosis: 0 % Post intervention ANGELA flow: 3 Lesion Devices: Terumo .014 180cm Runthrough Extra Floppy straight Cordis 6 Fr XB3.0 100cm Guide Catheter Medtronic Resolute Dwaine RX EFRAIN 3.5x30 [employer] NC EMERGE MR 3.50x20 BALLOON Medtronic NC EUPHORA RX 4.0x08 BALLOON COMPLICATIONS No Complications PROCEDURE MEDICATIONS Fentanyl 50 mcg IV Versed 1 mg IV Oxygen: 2 L/min via nasal cannula Brilinta 180 mg PO @ 06/04/2022 09:53:45 Heparin given IA 06/04/2022 09:34:23 Heparin 5000 unit(s) IV 06/04/2022 09:53:14 Heparin 2000 unit(s) IV 06/04/2022 10:11:54 SUMMARY OF HEMODYNAMIC DATA Time AIR REST ECG 09:03:18 AO 92/46 (66) SA 09:39:19 AO 112/48 (70) 09:53:56 Signed By Leigha Trejo MD On 06/04/2022 10:43:12 Leigha Trejo MD
--- NOTE | 2022-06-04 11:17 | EKG12_ITS ---
Test Reason : ABNORMAL EKG Blood Pressure : / mmHG Vent. Rate : 062 BPM Atrial Rate : 078 BPM P-R Int : 000 ms QRS Dur : 080 ms QT Int : 426 ms P-R-T Axes : 000 011 037 degrees QTc Int : 432 ms Atrial fibrillation Nonspecific ST abnormality Abnormal ECG When compared with ECG of 04-JUN-2022 05:42, Atrial fibrillation has replaced Sinus rhythm ST now depressed in Anterior leads Confirmed by LISA LOPEZ, ABBEY ([id number]), newspaper copy editor RODGER CASTRO ([id number]) on 06/09/2022 10:50:10 AM Referred By: MIKE Confirmed By:ABBEY GONZALEZ MD
[2022-06-04] MEDS: 0.9% Normal Saline 1,000 ML 100 ML IV (11:36)
[2022-06-04 13:28] LABS: Pathologist Review Reviewed
[2022-06-04 13:29] LABS: Pathologist Review Reviewed
--- NOTE | 2022-06-04 13:31 | PN_ITS ---
Subjective Subjective Patient seen and examined. He had cardiac cath today. He was transferred to the ICU after cardiac cath. Objective Data Objective Data Vital Signs: Vital Signs Temp Pulse Resp BP Pulse Ox O2 Del Method O2 Flow Rate 97.8 F 49 L 10 L 98/60 100 Nasal Cannula 2 06/04/22 11:15 06/04/22 12:30 06/04/22 12:30 06/04/22 12:30 06/04/22 12:30 06/04/22 12:30 06/04/22 12:30 FiO2 2 06/04/22 11:28 Oxygen Flow Rate (L/min) 2 Oxygen Delivery Method Nasal Cannula Weight: 133 lb 13.129 oz Body Mass Index (BMI) 20.9 Intake & Output: Intake and Output for Last 24 Hours 06/02/22 06/03/22 06/04/22 23:59 23:59 23:59 Intake Total 300 / 300 Balance 300 / 300 Lab / Micro Data Result Diagrams: 06/04/22 04:16 06/04/22 04:16 Labs: Laboratory Results - last 24 hr 06/03/22 12:32: WBC 12.9 H, RBC 4.12 L, Hgb 13.1, Hct 39.5 L, MCV 95.9 H, MCH 31.8, MCHC 33.2, RDW Std Deviation 49.1 H, RDW Coeff of Luis Alberto 13.8, Plt Count 233, MPV 10.0, Immature Gran % (Auto) 0.400, Neut % (Auto) 71.4 H, Lymph % (Auto) 8.8 L, [place] % (Auto) 19.1 H, Eos % (Auto) 0.1, Baso % (Auto) 0.2, Absolute Neuts (auto) 9.2 H, Absolute Lymphs (auto) 1.13, Nucleated RBC % 0, Differential Comment SCANNED, Diff Path Review Reviewed 06/03/22 12:32: Sodium 135 L, Potassium 3.9, Chloride 103, Carbon Dioxide 24.0, Anion Gap 8, BUN 20 H, Creatinine 1.30, Estim Creat Clear Calc 36.81, Est GFR (MDRD) Af Amer 67, Est GFR (MDRD) Non-Af 56 L, BUN/Creatinine Ratio 15.4, Glucose 223 H, Calcium 8.8, Troponin I High Sens 116 H 06/03/22 15:30: Troponin I High Sens 113 H 06/03/22 18:50: Troponin I High Sens 120 H 06/04/22 04:16: Sodium 135 L, Potassium 4.2, Chloride 103, Carbon Dioxide 23.0, Anion Gap 9, BUN 19 H, Creatinine 1.02, Estim Creat Clear Calc 44.63, Est GFR (MDRD) Af Amer 89, Est GFR (MDRD) Non-Af 73, BUN/Creatinine Ratio 18.6, Glucose 111 H, Calcium 8.8 06/04/22 04:16: WBC 11.6 H, RBC 4.13 L, Hgb 12.9 L, Hct 38.7 L, MCV 93.7, MCH 31.2, MCHC 33.3, RDW Std Deviation 49.0 H, RDW Coeff of Luis Alberto 14.2, Plt Count 222, MPV 10.1, Immature Gran % (Auto) 0.300, Neut % (Auto) 61.2, Lymph % (Auto) 10.1 L, [place] % (Auto) 27.9 H, Eos % (Auto) 0.2, Baso % (Auto) 0.3, Absolute Neuts (auto) 7.1, Absolute Lymphs (auto) 1.17, Nucleated RBC % 0, Diff Path Review Reviewed Radiography Diagnostic Testing: Radiology Impression Chest X-Ray 06/03/22 13:20 IMPRESSION: No acute abnormality is seen. Electronically Signed: Hemant Elaine MD at 13:33 EST Reading Location ID and State: [address] [place] [address] , Service support , Rhythm Strip Rhythm Strip: Sinus Rhythm Rate: 85 Ectopy: None Physical Exam Const alert, oriented x3, no apparent distress and average body habitus General Appearance: cooperative HEENT normocephalic, head/scalp atraumatic and hearing grossly normal bilaterally Eyes PERRL, EOMs intact bilaterally and conjunctivae normal Neck no lymphadenopathy and supple Resp normal respiratory effort, no retractions, no use of accessory muscles and clear to auscultation bilaterally Cardio regular rate, regular rhythm, S1 normal heart sound, S2 normal heart sound and no murmurs GI normal to inspection, nondistended, normoactive bowel sounds, soft to palpation, non-tender and non-distended Extremity normal to inspection, full ROM and no clubbing, cyanosis or edema Skin General Skin Exam: no breakdown Neuro oriented x3, CN's II-XII intact bilaterally, moves all extremities and no focal motor deficits Sensorium / Orientation: awake and alert Motor Exam: strength 5/5 throughout Psych affect normal Assessment & Plan Assessment/Plan (1) Chest pain: (2) Elevated troponin: PLAN: Plan #Nonstemi * admitted yesterday with complaints of chest pain. Initial troponin was 116 and only trended up slightly * EKG showed no acute ST changes * cardiology on board. On PO aspirin 81mg daily and high intensity statin * 2D echo done; read is pending * had cardiac cath today. Cath was complicated by a brief moment of asystole which resolved after he coughed; he also developed atrial flutter. * on aspirin, high intensity statin and plavix * 2D echo done; read pending * #Bradycardia: HR down to the 40s. this is after cath. Not known to be bradycardic. Will monitor closely. #DVT prophylaxis: Lovenox CODE STATUS: Full code Charges/Coding Visit Charges Inpatient E&M: 09628 Subs Hosp L3
--- NOTE | 2022-06-04 13:34 | CRPHASE1_ITS ---
Patient Communication PHII Cardiac Rehab Discussed with Patient:: Yes Guide to Cardiac Rehab Given to Patient:: Yes Cardiac Rehab Facility Choice List Given to Patient:: Yes Choice Program [facility] PHII:: Communication Given to CR Senior Coldfusion Developer:: Leigha Trejo Phase II Cardiac Rehab:: Yes Sessions:: 36 sessions - 3 days/wk, 12 weeks Cardiac Rehabilitation Info Cardiac Rehabilitation Program Information: Cardiac Rehab The cardiac rehab team at [facility] consists of highly skilled exercise physiologists, nurses, respiratory therapists and physicians working together with you. Our purpose is to help you have a full recovery and achieve the goals you set for yourself. Over the years many of our patients have returned to activities they assumed they would never do again! We can help restore your confidence and motivation to make lifestyle changes that can have a significant impact on your health and quality of life! We can help answer questions and concerns you may have about exercise, lifestyle, medications, diet, stress and anxiety which are common following a hospitalization. WE monitor ECG and vital signs during exercise and discuss your progress with you and report to your physician(s). Cardiac Rehab is proven to help reduce readmissions, improve functional capacity and lower recurrence of problems with your heart. Our Cardiac Rehab program is Certified by the [place] [employer] Pulmonary [employer] (AACVPR) and Accredited by the [place] [employer] through our [facility]. You can contact us at . We invite you to call us with your questions or to get started in our program. If you have other questions or concerns be sure to ask your physician/provider during your follow-up visit. WE look forward to seeing you!
--- NOTE | 2022-06-04 13:35 | CRPH1.INSTRU ---
General Education CAD and cardiac anatomy and function:: Patient communicates acknowledgment, Family communicates acknowledgment, Needs reinforcement Explanation of diagnoses and procedures:: Patient communicates acknowledgment, Family communicates acknowledgment, Needs reinforcement Sign/Symptoms of NM:: Patient communicates acknowledgment, Family communicates acknowledgment, Needs reinforcement Antiplatelet therapy: Patient communicates acknowledgment, Family communicates acknowledgment, Needs reinforcement Proper use of NTG-SL: Patient communicates acknowledgment, Family communicates acknowledgment, Needs reinforcement Emergency procedures and activation of EMS: Patient communicates acknowledgment, Family communicates acknowledgment, Needs reinforcement Compliance of all prescribed medications: Patient communicates acknowledgment, Family communicates acknowledgment, Needs reinforcement Smoking Patient Nicotine/Smoking Risk Factors Are:: Pipes, Never smoked Dyslipidemia Recommendations Include:: Lipid profile not available Dyslipidemia Response Code:: Patient communicates acknowledgment, Family communicates acknowledgment, Needs reinforcement Overweight/Obesity Patient Overweight/Obesity Risk Factors Are:: BMI Normal [18-25 & < 65 years old] Recommendations Include:: Exercise 5-7 times/week Overweight/Obesity:: Patient communicates acknowledgment, Family communicates acknowledgment, Needs reinforcement Hypertension Patient Hypertension Risk Factors Are:: No documented hx of HTN Diabetes Patient Diabetes Risk Factors Are:: No documented hx of diabetes Sedentary Patient Sedentary Risk Factors Are:: Lack of regular exercise Recommendations Include:: Aerobic exercise 5-7 times/week for 20-30 minutes continuously, Benefits of regular exercise, Discussed home walking program, Monitored Outpatient Cardiac Rehab Sedentary Response Code:: Patient communicates acknowledgment, Needs reinforcement
--- NOTE | 2022-06-04 13:50 | CASEMGMT ---
RN?CM?PET CARE WORKER?CM?to room to meet with patient and family for initial transition planning/care coordination?assessment.?RN?CM?introduced self and role at [facility].? Pt voices understanding and consents to?assessment?at this time.? Pt resting in bed in no distress at this time.? and son, Allen, @ bedside. Pt slightly HUGHES and very HUGHES. Pt is A/O and provided some of the info, but Allen provided most info. Care providers, pharmacy, and demographics verified/updated at this time. PCP: Dr Francois Specialists:none Preferred Pharmacy: [facility] Insurance: Son states they do not have [employer], but the Let is going to cover cost. He states he has already spoken w/Shemar Lopez liaison, re: this. Prescription Benefit:?none Living Will/HPOA:?Pt does not currently have LW/HCPOA. Made aware this can be completed, if desired. LNOK: , Yodit. 5 sons Living Arrangements: Lives w/ in mobile home w/3 steps to enter and he is able to navigate well. Indep w/ADL's. manages pt's medications and does home mgmt tasks. Pt's son, Jori, and his family live next door. Transportation:? Hire drivers DME: ?Has a built-in shower seat. No other DME. ?Son states no need for further DME at this time.? HHC/SNF: No hx of either. No needs identified. Pt and family wish for pt to return home and states has no concerns with going home at time of discharge.??CM?to follow for any discharge planning/needs.? Pt and family voice no concerns/needs at this time.? Advised them to ask for?CM?if any questions/concerns/needs arise.? They voice understanding. PLAN:??Home w/family support and discharge plans in place. Barbara REDDYN?RN?CM
[2022-06-04 13:58] LABS: ACT Activated Clotting Time 245 sec (74-137)
[2022-06-04 13:58] LABS: ACT Activated Clotting Time 245 sec (74-137)
--- NOTE | 2022-06-04 14:25 | CHAPLAIN ---
Type of Pastoral Visit _x__ Initial Visit ___ Follow-up Visit ___ On-call Visit ___ General Patient Visit ___ Spiritual Assessment ___ Family Conference ___ Bereavement ___ Rapid Response ___ Code Blue ___ Other (describe below) Pastoral Care Referral From _x__ Patient ___ Family ___ Nurse ___ Physician ___ Serging Machine Operator ___ Rip And Groove Machine Operator ___ Other (describe below) Sacrament/Intervention _x__ Active listening ___ Anointing ___ Voodoo ___ Bereavement ___ Communion ___ Izabel exploration ___ ___ Life review ___ Prayer ___ Reconciliation ___ Sacrament of Sick _x__ Supportive presence ___ Wedding ___ Other (describe below) Pastoral Comments patient came in for heart issues and had a cath this morning; spouse and son are with him in the room; patient is awake but does little of the talking; spouse states that he is so much better than yesterday or even this morning; son gives more details; all express thanks for the support and good outcome
[2022-06-04 14:52] LABS: Cholesterol 116 mg/dL (200); High Density Lipoprotein 48 mg/dL; Triglycerides 44 mg/dL; Very Low Density Lipoprotein 9 mg/dL (5-40)
[2022-06-04 15:02] LABS: Hemoglobin A1c 5.8 % (3.8-5.6)
--- NOTE | 2022-06-04 18:54 | PN.CARD_ITS ---
Subjective Subjective The patient was evaluated earlier this day. He underwent diagnostic cardiac catheterization. He did undergo subsequent PCI procedure. It was noted during his procedure that he had various cardiac rhythm related ch anges from sinus rhythm to sinus bradycardia to atrial flutter to sinus rhythm/sinus bradycardia/transient junctional rhythm and subsequent return to atrial flutter. He has had no new acute cardiac complaints. He has been reported by the [facility] ICU staff is being somewhat confused as the day has/evening has progressed. Objective Data Vital Signs: Vital Signs Temp Pulse Resp BP Pulse Ox O2 Del Method O2 Flow Rate 97.8 F 72 23 H 115/67 98 Room Air 2 06/04/22 11:15 06/04/22 18:00 06/04/22 18:00 06/04/22 18:00 06/04/22 18:00 06/04/22 18:00 06/04/22 13:30 FiO2 2 06/04/22 11:28 Oxygen Flow Rate (L/min) 2 Oxygen Delivery Method Room Air Weight: 133 lb 13.129 oz Body Mass Index (BMI) 20.9 Intake & Output: Intake and Output for Last 24 Hours 06/02/22 06/03/22 06/04/22 23:59 23:59 23:59 Intake Total 300 / 300 Output Total 800 / 800 Balance 300 / 300 -800 / -800 Lab / Micro Data Result Diagrams: 06/04/22 04:16 06/04/22 04:16 Labs: Laboratory Results - last 24 hr 06/03/22 12:32: Diff Path Review Reviewed 06/03/22 18:50: Troponin I High Sens 120 H 06/04/22 04:16: Sodium 135 L, Potassium 4.2, Chloride 103, Carbon Dioxide 23.0, Anion Gap 9, BUN 19 H, Creatinine 1.02, Estim Creat Clear Calc 44.63, Est GFR (MDRD) Af Amer 89, Est GFR (MDRD) Non-Af 73, BUN/Creatinine Ratio 18.6, Glucose 111 H, Calcium 8.8 06/04/22 04:16: WBC 11.6 H, RBC 4.13 L, Hgb 12.9 L, Hct 38.7 L, MCV 93.7, MCH 31.2, MCHC 33.3, RDW Std Deviation 49.0 H, RDW Coeff of Luis Alberto 14.2, Plt Count 222, MPV 10.1, Immature Gran % (Auto) 0.300, Neut % (Auto) 61.2, Lymph % (Auto) 10.1 L, [place] % (Auto) 27.9 H, Eos % (Auto) 0.2, Baso % (Auto) 0.3, Absolute Neuts (auto) 7.1, Absolute Lymphs (auto) 1.17, Nucleated RBC % 0, Diff Path Review Reviewed 06/04/22 04:16: Triglycerides 44, Cholesterol 116, LDL Cholesterol 59, VLDL Cholesterol 9, HDL Cholesterol 48 06/04/22 04:16: Hemoglobin A1c 5.8 H 06/04/22 10:05: Activated Clotting Time 245 H 06/04/22 10:30: Activated Clotting Time 245 H Rhythm Strip Rhythm Strip: Sinus Rhythm Rate: 85 Ectopy: None Cardiology Labs/Tests 06/04/22 04:16: Sodium 135 L, Potassium 4.2, Chloride 103, Carbon Dioxide 23.0, Anion Gap 9, BUN 19 H, Creatinine 1.02, Est GFR (MDRD) Af Amer 89, Est GFR (MDRD) Non-Af 73, BUN/Creatinine Ratio 18.6, Glucose 111 H, Calcium 8.8 06/04/22 04:16: WBC 11.6 H, RBC 4.13 L, Hgb 12.9 L, Hct 38.7 L, MCV 93.7, MCH 31.2, MCHC 33.3, Plt Count 222, MPV 10.1, Immature Gran % (Auto) 0.300, Neut % (Auto) 61.2, Lymph % (Auto) 10.1 L, [place] % (Auto) 27.9 H, Eos % (Auto) 0.2, Baso % (Auto) 0.3, Absolute Neuts (auto) 7.1, Nucleated RBC % 0 06/04/22 04:16: Triglycerides 44, Cholesterol 116, LDL Cholesterol 59, VLDL Cholesterol 9, HDL Cholesterol 48 06/04/22 04:16: Hemoglobin A1c 5.8 H Rhythm: Atrial flutter Radiography Diagnostic Testing: Radiology Impression Echocardiogram 06/04/22 05:55 Interpretation Summary Left ventricular systolic function is lower limits of normal. The estimated ejection fraction is 50 %. The left atrium is mildly enlarged. Mild (1+) mitral valve insufficiency. Mild tricuspid valve insufficiency. Trivial aortic valve insufficiency. Mild (1+) pulmonic valve insufficiency. Right ventricular systolic pressure estimated to be 31 mmHg. Diastolic function is indeterminate. Ordering Physician: Moy Bahena Referring Physician: Theo Francois Performed By: Carolina Greenwood, FLORI, RVT Physical Exam Const alert, oriented x3 and no apparent distress Orientation / Consciousness: awake HEENT normocephalic, head/scalp atraumatic and hearing grossly normal bilaterally Eyes PERRL, EOMs intact bilaterally, conjunctivae normal and no scleral icterus Neck full ROM, supple and no JVD Carotids: normal carotid upstroke Resp normal respiratory effort and clear to auscultation bilaterally Cardio S1 normal heart sound and S2 normal heart sound Rhythm: abnormal rhythm irregularly irregular GI normal to inspection, nondistended, normoactive bowel sounds Extremity no pedal edema Extremity Narrative: Right radial artery area: Pulse 2+/4+: No bruits: No hematoma Skin no rashes or lesions noted Psych mental status grossly normal Assessment & Plan Assessment/Plan (1) CAD (coronary artery disease): PLAN: Patient has been diagnosed with underlying CAD. He will need to continue risk factor modification medical therapy as deemed appropriate. He has undergone evaluation with noninvasive and invasive studies. Cardiac catheterization did diagnose underlying CAD for which she underwent PTCA/stenting procedures. (2) S/P PTCA (percutaneous transluminal coronary angioplasty): PLAN: He is now status post coronary artery PTCA/stenting procedures. He will continue medical management which includes aspirin therapy and antiplatelet therapy with clopidogrel/Plavix. (3) Cardiac dysrhythmia: PLAN: He does have a finding compatible with underlying various cardiac dysrhythmias during and following his cardiac catheterization procedure. It is unclear whether these events have been there prior to his cardiovascular evaluation. At the moment he appears to be in atrial flutter with a controlled ventricular response. He will continue medical management. He will be placed on anticoagulant therapy with IV heparin. Depending upon his findings he may need an attempt at synchronized biphasic DC cardioversion to regain sinus rhythm. (4) Non-ST elevation (NSTEMI) myocardial infarction: PLAN: The patient's cardiac enzymes are concerning for a non-ST segment el evation [place]. He has undergone evaluation and care as noted. His transthoracic echocardiogram has been reviewed. His cardiac catheterization PCI procedures have been reviewed. He will continue medical management which includes the medications noted above as well as beta-rob therapy if tolerated from a cardiac rhythm standpoint and lipid-lowering therapy with a statin. (5) GERD (gastroesophageal reflux disease): PLAN: The patient states that he was diagnosed with GERD by an EGD in the past. He admits he did not stay on his PPI as recommended. It is unclear whether this is contributing to any of his symptoms at this time. He is being placed back on a PPI at this time. Addt'l Comments The patient's case has been previously discussed with the patient, his family members, and Dr. Trejo of interventional cardiology. Comment: Time spent the patient's overall evaluation, examination, review of medical records, review of imaging studies, placing orders, documentation, etc.: 50 minutes Procedure Criteria Type of Procedure Procedure Type: Elective Elective Risks - COVID COVID Risk Discussion: The surgeon/proceduralist and patient have discussed in detail the risk of expos ure to and/or potential harm posed by the COVID-19 virus with having a surgery/procedure at this time versus the risk of delaying the surgery/procedure. It is not possible to know either the risk of delaying the surgery or procedure or chance of getting an infection with perfect accuracy, but a joint decision was made between the patient and the surgeon/proceduralist to proceed at this time with the scheduled surgery/procedure as indicated on the consent form.
[2022-06-04 19:54] LABS: International Normalized Ratio 1.2; Partial Thromboplast Time 34.9 Seconds (24.1-36.2); Prothrombin Time (Protime)PT. 15.2 SECONDS (11.7-14.9)
[2022-06-04] MEDS: Atorvastatin Calcium 40 MG Tablet PO (20:07)
[2022-06-04] MEDS: Metoprolol Tartrate 25 MG Tablet 12.5 MG PO (20:07)
[2022-06-04] MEDS: 0.9% Saline Lock 10 ML Syringe IV (20:07)
[2022-06-04] MEDS: Clopidogrel Bisulfate 300 MG Tablet PO (20:07)
[2022-06-04] MEDS: HEPARIN/D5w 25,000 UNITS 25,000 UNITS/250 ML IV.SOLN. 8 UNITS CONT INF (20:08)
[2022-06-05] VITALS (21 sets, daily range): BP systolic 92–137; BP diastolic 48–82; PULSE 60–104; RESP 13–28; TEMP 37–37.2; O2SAT 96–100; BMI 20.9
[2022-06-05 02:28] LABS: Absolute Lymphocyte Count 0.54 X10^3/uL (0.83-4.51); Basophil# 0.03 X10^3/uL; Basophil% 0.2 % (0-1); Hematocrit 37.6 % (40-54); Hemoglobin 12.7 g/dL (13.0-16.5); Lymphocyte # 0.54 X10^3/ul (0.83-4.51); Lymphocyte % 3.3 % (19-41); Mean Corp Hgb Conc 33.8 g/dL (32-36); Mean Corpuscular Hgb 31.8 pg (27.0-32.0); Mean Platelet Vol. 9.2 fl (6.2-12.0); Monocyte# 2.47 X10^3/uL; Monocyte% 15.3 % (0-10); NRBC Flagged by Analyzer 0 % (0-5); Neutrophil # 12.99 X10^3/uL (2.7-7.7); Neutrophil % 80.5 % (47-70); POSITIVE DIFFERENTIAL YES; Platelet Count 238 K/mm3 (150-450); RBC Distribution Width CV 13.4 % (11.6-14.6); RBC Distribution Width SD 46.3 fl (35.1-43.9); White Blood Count 16.2 K/mm3 (4.4-11.0)
[2022-06-05 02:29] LABS: Differential Indicated SCAN CRITERIA MET
[2022-06-05 02:38] LABS: Partial Thromboplast Time 54.4 Seconds (24.1-36.2)
[2022-06-05] MEDS: 0.9% Saline Lock 10 ML Syringe IV (02:44)
[2022-06-05 02:45] LABS: ALB/GLOB Ratio 0.7 RATIO (0.9-2.4); AST(SGOT) 20 U/L (15-37); Alanine Aminotransfer ALT/SGPT 16 U/L (16-61); Albumin, Serum 2.9 g/dL (3.2-5.0); Alkaline Phosphatase 24 U/L (45-117); Anion Gap 9 (5-15); BUN 16 mg/dL (7-18); BUN/Creat Ratio 14.4 RATIO (10-20); Calcium,Total 8.4 mg/dL (8.5-10.1); Chloride 105 mmol/L (98-107); Creatinine, Serum 1.11 mg/dL (0.70-1.30); EST Glomerular Filtration Rate 67 mL/min (>60); Est Glom Filt Rate - Afr Amer 81 mL/min (>60); Estimated Creatinine Clearance 41.01 ml/min; Globulin 4.4 g/dL (2.2-4.2); Glucose 163 mg/dL (74-106); Potassium 3.8 mmol/L (3.5-5.1); Protein, Total 7.3 g/dL (6.4-8.2); Sodium Level 136 mmol/L (136-145)
[2022-06-05] MEDS: Heparin Injection (Vial) 5,000 UNIT/ML VIAL IV (02:45)
[2022-06-05 02:47] LABS: Bacteria 0 SEEN /hpf (None Seen); Color, Urine Yellow (Yellow); Glucose, Dipstick Normal (Normal); Ketone-Dipstick 50 mg/dl (Negative); Leukocyte Esterase-Dipstick Negative /ul (Negative); Mucous, Urine 0 SEEN /hpf (<or=2+); Nitrite-Dipstick Negative (Negative); Occult Blood-Urine 250 /ul (Negative); Protein-Dipstick 30 mg/dl (Negative); Specific Gravity, Urine 1.015 (1.002-1.030); Squamous Epithelial Cells - UA 0 SEEN /hpf (0-5); Urine Bilirubin Dipstick Negative (Negative); Urine Clarity Sl. Cloudy (Clear); Urine Urobilinogen Normal (Normal)
[2022-06-05 02:53] LABS: Red Blood Cells-Urine > 100 SEEN /hpf (0-5); White Blood Cells 0-5 SEEN /hpf (0-5)
--- NOTE | 2022-06-05 03:00 | NURSING ---
Per dayshift RN and family reports, pt became confused following his heart cath. Overnight, pt was having increased confusion and restlessness, and becoming aggressive. Pt's son came back to room to see if he could help calm pt down, but without much success. Pt was anxious and tearful at times as well. Per son's report, pt is not normally confused at all. Dr. Lin notified of increased confusion and urinary frequency. UA ordered. Head CT also ordered to be cautious.
--- NOTE | 2022-06-05 03:01 | CT_ITS ---
EXAM: CT brain without contrast HISTORY: Confusion TECHNIQUE: CT Head or Brain W/O Contrast Injection A radiation dose optimization technique was used for this scan. COMPARISON: None. LIMITATIONS: None. BRAIN: Wedge-shaped hypoattenuation, sulcal effacement and loss of baxter-white differentiation in the right parietal lobe, highly suspicious for acute infarct.. VENTRICLES: The ventricles and cortical sulci are mildly enlarged. Bilateral periventricular hypoattenuation, nonspecific however likely represents chronic microvascular ischemic changes.. EXTRA-AXIAL SPACES: No hemorrhages, fluid collections, or masses. CALVARIUM/SKULL BASE: Normal. FACE/SINUSES: Opacified right maxillary sinus with mucoperiosteal thickening. Right mastoid effusion. SOFT TISSUES: Normal. OTHER: Vascular calcifications. CT/Brain/Head without Contrast IMPRESSION: 1. 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 2. No intracranial hemorrhage. 3. Right mastoid effusion. 4. Chronic right maxillary sinusitis. Electronically Signed: Jorge Messina MD at 4:51 EST ,
--- NOTE | 2022-06-05 03:01 | PCM.HOSP.N ---
Hospitalist Note Patient with ongoing confusion, worsening through the course of the day 06/04/22, ongoing. Given usage of heparin drip and change from his baseline with UA notable for hematuria likely from the anticoagulation but no evidence UTI, to be cautious will obtain CT head.
--- NOTE | 2022-06-05 05:26 | MRI_ITS ---
We are attempting to reach an attending provider to discuss findings. An addendum with communication details will be sent when the communication is complete. EXAM: MR HEAD WITHOUT INTRAVENOUS CONTRAST CLINICAL INDICATION: CVA TECHNIQUE: Multiplanar and multisequence MR images of the brain were obtained without intravenous contrast. This report was created using [employer] report generation technology. COMPARISON: CT head without contrast 06/05/2022. FINDINGS: BRAIN AND EXTRA-AXIAL SPACES: Prominent diffusion restriction in the right superior and inferior parietal lobules and the right lateral occipitotemporal gyrus. This is also hyperintense on the T2 FLAIR sequence and are consistent with subacute cortical gyral ischemic infarct. Multiple T2 FLAIR hyperintensity foci in the white matter of both cerebral hemispheres are chronic white matter signal changes. No intra- or extra-axial hemorrhage. No intracranial mass. No abnormal magnetic cyst stability foci to suspect intracranial hemorrhage. Posterior fossa structures are unremarkable. Normal ventricles and cisterns. SELLA: Unremarkable. Normal sella turcica, pituitary gland, infundibular stalk, optic chiasm and hypothalamus. AUDITORY SYSTEM: Unremarkable. The internal auditory canals are patent. BONES/JOINTS: See below. SINUSES: Contracted right maxillary sinus with mucosal thickening due to chronic sinusitis. MASTOID AIR CELLS: Mild mucosal edema in the right temporal mastoid bones. ORBITS: Unremarkable as visualized. Both globes, extraocular muscles, optic nerves and retrobulbar fat appear unremarkable. VASCULATURE: Unremarkable as visualized. Normal flow voids in the major intracranial circulation. MRI/Brain without Contrast IMPRESSION: 1. 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 2. Multiple chronic white matter ischemic changes in both cerebral hemispheres. 3. Non-coalescent mucosal edema in the right temporal mastoid bones and chronic right maxillary sinusitis. Electronically Signed: Carlos Loaiza MD at 13:39 EST ,
--- NOTE | 2022-06-05 05:26 | CDU_ITS ---
Reason For Study: CVA Rt. Velocities/BP Lt. Velocities/BP Prox CCA 74.9/7.8 cm/sec. Prox CCA 60.4/10.7 cm/sec. Mid CCA 59.8/10.7 cm/sec. Mid CCA 64.8/14.2 cm/sec. Dist CCA 61.7/8.8 cm/sec. Dist CCA 38.6/9 cm/sec. Prox ICA 34.3/6.9 cm/sec. Prox ICA 42.1/10.7 cm/sec. Mid ICA 57/15.4 cm/sec. Mid ICA 48.2/16 cm/sec. Dist ICA 49/12.2 cm/sec. Dist ICA 58.7/16 cm/sec. Rt. ICA/CCA = 0.92. Lt. ICA/CCA = 0.97. Prox ECA 77.7/7.7 cm/sec. Prox ECA 85.7/4.6 cm/sec. Rt. Vert. 27.3/6.4 cm/sec. Lt. Vert. 42.1/10.7 cm/sec. Right Extracranial There is intimal thickening but no significant atherosclerotic plaque noted in the right common carotid artery. There is intimal thickening but no significant atherosclerotic plaque noted in the right internal carotid artery. There is intimal thickening but no significant atherosclerotic plaque noted in the right external carotid artery. Antegrade flow is noted in the right vertebral artery. Left Extracranial There is intimal thickening but no significant atherosclerotic plaque noted in the left common carotid artery. There is homogeneous, smooth atherosclerotic plaque noted in the left internal carotid artery. There is intimal thickening but no significant atherosclerotic plaque noted in the left external carotid artery. Antegrade flow is noted in the left vertebral artery. VL/Carotid Duplex Ultrasound Interpretation Summary Intimal thickening at the proximal right internal carotid artery with less than 50% stenosis Less than 50% stenosis right external carotid artery Smooth plaque at the proximal left internal carotid artery with less than 50% s tenosis Less than 50% stenosis left external carotid artery Patent and antegrade vertebral arteries bilaterally Ordering Physician: Lexie Lin Referring Physician: Theo Francois Performed By: Emilie Hopper RVT
--- NOTE | 2022-06-05 05:27 | MRI_ITS ---
STUDY: MRA OF THE HEAD WITHOUT CONTRAST REASON FOR EXAM: Male, 86 years old. CVA TECHNIQUE: 3-D [id number] (TOF) imaging was performed with MIPs. The study was performed unenhanced. COMPARISON: None. FINDINGS: Normal bilateral petrous carotid arteries. Normal right cavernous carotid artery with a normal supraclinoid bifurcation. Normal left cavernous carotid artery with a normal supraclinoid bifurcation. Normal right A1 segment of the anterior cerebral artery. Normal left A1 segment of the anterior cerebral artery. Normal intact anterior communicating artery (ACOM). Normal bilateral A2 segments of the anterior cerebral arteries. Normal right M1 and M2 segments of the middle cerebral arteries, with a normal M1 bifurcation. Normal left M1 and M2 segments of the middle cerebral arteries, with a normal M1 bifurcation. Normal right posterior communicating artery (PCOM). No visible left posterior communicating artery (PCOM). Normal bilateral vertebral arteries. Normal basilar artery with a normal basilar bifurcation. The visualized bilateral superior cerebellar (SCA) arteries are normal. Normal bilateral P1, P2 and visualized P3 segments of the posterior cerebral arteries. There is no demonstrated aneurysm of the nikolai of [place]. There is no major vessel occlusion or hemodynamically significant stenosis. Prominent subacute cortical gyral ischemic infarct in the right superior and inferior parietal lobules and in the right lateral occipitotemporal gyrus. MRI/MRA Head ONLY without Contrast IMPRESSION: Normal MRA of the head but limited since only the proximal M2 segments are included in the scan. This MRA does not include the thromboembolic occlusion and infarction of the right superior and inferior parietal lobules and the right lateral occipitotemporal gyrus. CTA head and neck will be more helpful if desired. Electronically Signed: Carlos Loaiza MD at 13:43 EST ,
--- NOTE | 2022-06-05 05:29 | PN.HOSP_ITS ---
Hospitalist Note CT of the brain resulted with findings highly suspicious for an acute right parietal infarct with no acute intracranial hemorrhage, mild right mastoid effusion and chronic right maxillary sinusitis. Patient is currently maintained on aspirin as well as Plavix in addition to a heparin drip. We will continue these items however will closely monitor urine as patient has been having as noted on his urinalysis hematuria. We will closely trend hemoglobin. Patient is awaiting further intervention per cardiology and once appropriate we will de- escalate off heparin drip. We will request MRI of the brain as well as MRA of the head and carotid ultrasound. Patient received echocardiogram the day prior thus will defer immediate repeat at this time. Given the sudden change we will temporarily stop patient's metoprolol 12.5 mg twice daily for permissive hypertension and will add maintenance IV fluids while closely monitoring for any overload, will request PT/OT/ST consultations per protocol and initiate NIH stroke scale assessments. FLP just obtained thus will not repeat and will maintain on patient's statin currently in place. Will maintain on fall and aspiration precautions. Recent 06/04/2022 hemoglobin A1c noted to be 5.8% thus will defer repeat. We will request magnesium and TSH level.
[2022-06-05] MEDS: 0.9% Normal Saline 1,000 ML 100 ML IV ×2 (06:10→17:31)
[2022-06-05 06:55] LABS: Thyroid Stim Hormone (TSH) 3.67 uIU/mL (0.358-3.74)
--- NOTE | 2022-06-05 06:58 | TELEMED_ITS ---
[facility] has confirmed receipt of a request for visit. This document confirms receipt of the order initiating the consult. To find the results of the consultation, please view the patient's reports for the scanned Telemed Consult.
--- NOTE | 2022-06-05 08:16 | CL.D_ITS ---
Patient Name: JEREMY GONZALEZ Study Date: 06/04/2022 Performing: Moy Bahena MD Ht: 67 inches 170.18 cm : 1935 Wt: 133.82 lbs 60.7 kg Age: 86 Gender: male BSA: 1.7 PROCEDURE(S) PERFORMED DC02-(08207)LHC/COR IC12-([id number]/[id number])EFRAIN W/WO PTCA, SINGLE CORONARY ARTERY CLINICAL PROFILE AND INDICATIONS Indications: ACS <= 24 hrs Heart Failure: None Stress/Imaging Stress/Image Study Performed: No Angina Classification Anginal Classification w/in 2 Weeks: CCS IV CAD Presentations: Non-STEMI. CONCLUSIONS [place] Multivessel CAD RECOMMENDATIONS Risk factor modification Medical therapy Referred for immediate PCI Case discussed / reviewed with Dr. Trejo of Interventional Cardiology DESCRIPTION OF PROCEDURE The patient arrived to the procedure lab. The risks and benefits of the procedure as well as a full description of our services here and current unavailability of surgical backup were fully explained to the patient and/or their significant other prior to the catheterization. The Timeout was completed, verifying the correct patient and procedure. The patient's procedural site was prepped and draped in the usual fashion. Local anesthetic was given subcutaneously to right radial region with Lidocaine 2%. Using a modified Seldinger technique, arterial access was obtained via the right radial artery, a 6Fr sheath was inserted. Right Coronary Artery selective angiography was then performed in multiple views using a 5 Fr. 4.0 [place] catheter. Left Coronary Artery selective angiography was performed in multiple views using a 5 Fr. JL3.5 catheter.The arterial sheath was pulled and a TR Band was applied for hemostasis. 10cc of air CORONARY ANGIOGRAPHY DOMINANCE: Right Dominant LEFT HEART ASSESSMENT Left Ventricular Ejection Fraction: Not assessed LEFT ANTERIOR DESCENDING ARTERY: MID LAD: 85 % Stenosis DIAGONAL 1: Proximal - 75 % Stenosis CIRCUMFLEX ARTERY: Mild luminal irregularities RIGHT CORONARY ARTERY: MID RCA: Mild luminal irregularities less than 30% COMPLICATIONS No Complications PROCEDURE MEDICATIONS Fentanyl 50 mcg IV Versed 1 mg IV Oxygen: 2 L/min via nasal cannula Brilinta 180 mg PO @ 06/04/2022 09:53:45 Heparin given IA 06/04/2022 09:34:23 Heparin 5000 unit(s) IV 06/04/2022 09:53:14 Heparin 2000 unit(s) IV 06/04/2022 10:11:54 SUMMARY OF HEMODYNAMIC DATA Time AIR REST ECG 09:03:18 AO 92/46 (66) SA 09:39:19 AO 112/48 (70) 09:53:56 Signed By Moy Bahena MD On 06/08/2022 08:56:29 Moy Bahena MD
--- NOTE | 2022-06-05 10:00 | EKG12_ITS ---
Test Reason : HEDY Blood Pressure : / mmHG Vent. Rate : 050 BPM Atrial Rate : 288 BPM P-R Int : 000 ms QRS Dur : 086 ms QT Int : 428 ms P-R-T Axes : 000 026 072 degrees QTc Int : 390 ms Atrial fibrillation with conversion to Sinus Bradycardia Abnormal ECG When compared with ECG of 05-JUN-2022 05:10, Atrial fibrillation has replaced Sinus rhythm Vent. rate has decreased BY 28 BPM Confirmed by LISA LOPEZ, ABBEY ([id number]), legal editor RODGER CASTRO ([id number]) on 06/09/2022 10:44:46 AM Referred By: Confirmed By:ABBEY GONZALEZ MD
[2022-06-05] MEDS: Aspirin 81 MG TAB.CHEW PO (10:05)
[2022-06-05] MEDS: Clopidogrel Bisulfate 75 MG Tablet PO (10:05)
--- NOTE | 2022-06-05 10:05 | PCM.PN.CARD ---
Subjective Subjective The patient appears to be awake at this time. He admits his memory is not what it used to be . He does state he feels better with respect to his chest discomfort since his PCI procedure. He does not believe he has had any other new acute changes. 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 The family notes the patient appeared somewhat more confused which they were concerned was related to his IV sedation for his cardiac catheterization procedure. They believe the patient appears to be better this morning with respect to his mental status. The [facility] ICU staff noted the patient appeared to be somewhat more confused through the night. They also noted his atrial flutter was paroxysmal through the night and then return to atrial flutter. He did undergo evaluation by the hospitalist team for possible CVA. A brain CT was performed. There is a concern about a possible CVA. He is pending further evaluation at this time with additional noninvasive studies. Objective Data Vital Signs: Vital Signs Temp Pulse Resp BP Pulse Ox O2 Del Method O2 Flow Rate 98.9 F 86 20 H 94/65 99 Room Air 2 06/05/22 08:00 06/05/22 09:00 06/05/22 09:00 06/05/22 09:00 06/05/22 09:00 06/05/22 09:00 06/04/22 13:30 FiO2 2 06/04/22 11:28 Oxygen Flow Rate (L/min) 2 Oxygen Delivery Method Room Air Weight: 133 lb 13.129 oz Body Mass Index (BMI) 20.9 Intake & Output: Intake and Output for Last 24 Hours 06/03/22 06/04/22 06/05/22 23:59 23:59 23:59 Intake Total 300 / 300 1000 / 1060 112.93 / 112.93 Output Total 800 / 1400 1050 / 1050 Balance 300 / 300 200 / -340 -937.07 / -937.07 Lab / Micro Data Result Diagrams: 06/05/22 02:19 06/05/22 02:19 Labs: Laboratory Results - last 24 hr 06/03/22 12:32: Diff Path Review Reviewed 06/04/22 04:16: Diff Path Review Reviewed 06/04/22 04:16: Triglycerides 44, Cholesterol 116, LDL Cholesterol 59, VLDL Cholesterol 9, HDL Cholesterol 48 06/04/22 04:16: Hemoglobin A1c 5.8 H 06/04/22 10:05: Activated Clotting Time 245 H 06/04/22 10:30: Activated Clotting Time 245 H 06/04/22 19:34: PT 15.2 H, INR 1.2, APTT 34.9 06/05/22 02:19: Sodium 136, Potassium 3.8, Chloride 105, Carbon Dioxide 22.0, Anion Gap 9, BUN 16, Creatinine 1.11, Estim Creat Clear Calc 41.01, Est GFR (MDRD) Af Amer 81, Est GFR (MDRD) Non-Af 67, BUN/Creatinine Ratio 14.4, Glucose 163 H, Calcium 8.4 L, Total Bilirubin 0.90, AST 20, ALT 16, Alkaline Phosphatase 24 L, Total Protein 7.3, Albumin 2.9 L, Globulin 4.4 H, Albumin/Globulin Ratio 0.7 L 06/05/22 02:19: WBC 16.2 H, RBC 4.00 L, Hgb 12.7 L, Hct 37.6 L, MCV 94.0, MCH 31.8, MCHC 33.8, RDW Std Deviation 46.3 H, RDW Coeff of [place] 13.4, Plt Count 238, MPV 9.2, Immature Gran % (Auto) 0.700, Neut % (Auto) 80.5 H, Lymph % (Auto) 3.3 L, [place] % (Auto) 15.3 H, Eos % (Auto) 0.0, Baso % (Auto) 0.2, Absolute Neuts (auto) 13.0 H, Absolute Lymphs (auto) 0.54 L, Nucleated RBC % 0, Diff Path Review July06/05/22 02:19: APTT 54.4 H 06/05/22 02:19: Magnesium 2.0, TSH 3.67 06/05/22 02:32: Urine Color Yellow, Urine Clarity Sl. Cloudy, Urine pH 6.0, Ur Specific [place] 1.015, Urine Protein 30 H, Urine Glucose (UA) Normal, Urine Ketones 50 H, Urine Occult Blood 250 H, Urine Nitrite Negative, Urine Bilirubin Negative, Urine Urobilinogen Normal, Ur Leukocyte Esterase Negative, Urine RBC > 100 SEEN, Urine WBC 0-5 SEEN, Ur Squamous Epith Cells 0 SEEN, Urine Bacteria 0 SEEN, Urine Mucus 0 SEEN Rhythm Strip Rhythm Strip: Sinus Rhythm Rate: 85 Ectopy: None Cardiology Labs/Tests 06/04/22 04:16: Triglycerides 44, Cholesterol 116, LDL Cholesterol 59, VLDL Cholesterol 9, HDL Cholesterol 48 06/04/22 04:16: Hemoglobin A1c 5.8 H 06/04/22 19:34: PT 15.2 H, INR 1.2, APTT 34.9 06/05/22 02:19: Sodium 136, Potassium 3.8, Chloride 105, Carbon Dioxide 22.0, Anion Gap 9, BUN 16, Creatinine 1.11, Est GFR (MDRD) Af Amer 81, Est GFR (MDRD) Non-Af 67, BUN/Creatinine Ratio 14.4, Glucose 163 H, Calcium 8.4 L, Total Bilirubin 0.90 06/05/22 02:19: WBC 16.2 H, RBC 4.00 L, Hgb 12.7 L, Hct 37.6 L, MCV 94.0, MCH 31.8, MCHC 33.8, Plt Count 238, MPV 9.2, Immature Gran % (Auto) 0.700, Neut % (Auto) 80.5 H, Lymph % (Auto) 3.3 L, [place] % (Auto) 15.3 H, Eos % (Auto) 0.0, Baso % (Auto) 0.2, Absolute Neuts (auto) 13.0 H, Nucleated RBC % 0 06/05/22 02:19: APTT 54.4 H 06/05/22 02:19: Magnesium 2.0 06/05/22 02:32: Urine Color Yellow, Urine Clarity Sl. Cloudy, Urine pH 6.0, Ur Specific [place] 1.015, Urine Protein 30 H, Urine Glucose (UA) Normal, Urine Ketones 50 H, Urine Occult Blood 250 H, Urine Nitrite Negative, Urine Bilirubin Negative, Urine Urobilinogen Normal, Ur Leukocyte Esterase Negative, Urine RBC > 100 SEEN, Urine WBC 0-5 SEEN Rhythm: Atrial flutter with controlled ventricular response Cardiac catheterization: 06-04-2022 CONCLUSIONS [place] Multivessel CAD RECOMMENDATIONS Risk factor modification Medical therapy Referred for immediate PCI Case discussed / reviewed with Dr. Trejo of Interventional Cardiology DESCRIPTION OF? PROCEDURE The patient arrived to the procedure lab. The risks and benefits of the procedure as well as a full description of our services here and current unavailability of surgical backup were fully explained to the patient and/or their significant other prior to the catheterization. The Timeout was completed, verifying the correct patient and procedure. The patient's procedural site was prepped and draped in the usual fashion. Local anesthetic was given subcutaneously to right radial region with Lidocaine 2%. Using a modified Seldinger technique, arterial access was obtained via the right radial artery, a 6Fr sheath was inserted.? Right Coronary Artery selective angiography was then performed in multiple views using a 5 Fr. 4.0 [place] catheter. Left Coronary Artery selective angiography was performed in multiple views using a 5 Fr. JL3.5 catheter.The arterial sheath was pulled and a TR Band was applied for hemostasis. 10cc of air CORONARY ANGIOGRAPHY DOMINANCE:? Right Dominant LEFT HEART ASSESSMENT Left Ventricular Ejection Fraction: Not assessed LEFT ANTERIOR DESCENDING ARTERY: MID LAD: 85 % Stenosis DIAGONAL 1: Proximal - 75 % Stenosis CIRCUMFLEX ARTERY: Mild luminal irregularities RIGHT CORONARY ARTERY: MID RCA: Mild luminal irregularities less than 30% COMPLICATIONS No Complications PROCEDURE MEDICATIONS Fentanyl 50 mcg IV Versed 1 mg IV Oxygen: 2 L/min via nasal cannula Brilinta 180 mg PO @ 06/04/2022 09:53:45 Heparin given IA 06/04/2022 09:34:23 Heparin 5000 unit(s) IV 06/04/2022 09:53:14 Heparin 2000 unit(s) IV 06/04/2022 10:11:54 SUMMARY OF HEMODYNAMIC DATA ? Time ?? ? AIR REST ?? ? ECG? ? ? 09:03:18 ?? ? AO? 92/46? (66)? SA? ? 09:39:19 ?? ? AO? 112/48? (70)? ? ? 09:53:56 Cardiac PCI: 06-04-2022 CONCLUSIONS Successful EFRAIN Prox LAD using Resolute [place] 3.5x30 mm, optimized proximally using 4.0 mm balloon RECOMMENDATIONS ASA Indefinitley Plavix for at least 12 months DESCRIPTION OF? PROCEDURE The patient arrived to the procedure lab. The risks and benefits of the procedure as well as a full description of our services here and current unavailability of surgical backup were fully explained to the patient and/or their significant other prior to the catheterization. The Timeout was completed, verifying the correct patient and procedure. The patient's procedural site was prepped and draped in the usual fashion. Local anesthetic was given subcutaneously to right radial region with Lidocaine 2% Using a modified Seldinger technique,arterial access was obtained via the right radial artery, a 6Fr sheath was inserted. Right Coronary Artery selective angiography was then performed in multiple views using a 5 Fr. 4.0 [place] catheter. Left Coronary Artery selective angiography was performed in multiple views using a 5 Fr. JL3.5 catheter.The images were reviewed and options discussed. A decision was then made to proceed with an Intervention, IVUS or other adjunct procedure. ? ? XB3 Guide catheter was inserted and engaged into the LCA. Runthrough Guide wire was advanced to the LAD. 3.5x30 Resolute [place] Drug Eluting stent was inserted. Drug Eluting stent was advanced across the lesion in the LAD, mid. Angiogram performed post stent deployment. 3.5x20 [place] Balloon catheter was inserted. Balloon catheter was inserted post stent. 4x8 [place] Balloon catheter was inserted. Balloon catheter was advanced across lesion in the LAD, mid. Angiogram performed post balloon dilatation. ? The arterial sheath was pulled and a TR Band was applied for hemostasis. 10cc of air INTERVENTION INFORMATION LESION SITE: LAD (Mid) Lesion Complexity: High/C, lesion length: 28 mm, culprit lesion: Yes, In-stent restenosis: No ?Pre Stenosis: 90 % Pre intervention ANGELA flow: 3 PROCEDURE: Drug Eluting Stent with post dilatation Post Stenosis: 0 %? Post intervention ANGELA flow: 3 Lesion Devices: Terumo .014 180cm Runthrough Extra Floppy straight Cordis 6 Fr XB3.0 100cm Guide Catheter Medtronic Resolute [place] RX EFRAIN 3.5x30 [employer] NC EMERGE MR 3.50x20 BALLOON Medtronic NC EUPHORA RX 4.0x08 BALLOON COMPLICATIONS No Complications PROCEDURE MEDICATIONS Fentanyl 50 mcg IV Versed 1 mg IV Oxygen: 2 L/min via nasal cannula Brilinta 180 mg PO @ 06/04/2022 09:53:45 Heparin given IA 06/04/2022 09:34:23 Heparin 5000 unit(s) IV 06/04/2022 09:53:14 Heparin 2000 unit(s) IV 06/04/2022 10:11:54 SUMMARY OF HEMODYNAMIC DATA ? Time ?? ? AIR REST ?? ? ECG? ? ? 09:03:18 ?? ? AO? 92/46? (66)? SA? ? 09:39:19 ?? ? AO? 112/48? (70)? ? ? 09:53:56 Radiography Diagnostic Testing: Radiology Impression Echocardiogram 06/04/22 05:55 Interpretation Summary Left ventricular systolic function is lower limits of normal. The estimated ejection fraction is 50 %. The left atrium is mildly enlarged. Mild (1+) mitral valve insufficiency. Mild tricuspid valve insufficiency. Trivial aortic valve insufficiency. Mild (1+) pulmonic valve insufficiency. Right ventricular systolic pressure estimated to be 31 mmHg. Diastolic function is indeterminate. Ordering Physician: Moy Bahena Referring Physician: Theo Francois Performed By: Carolina Greenwood, FLORI, RVT Brain CT 06/05/22 03:01 IMPRESSION: 1. 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 2. No intracranial hemorrhage. 3. Right mastoid effusion. 4. Chronic right maxillary sinusitis. Electronically Signed: Jorge Messina MD at 4:51 EST Reading Location ID and State: [place] / [place] Tel , Service support , ADDENDUM: 06/05/22 0601 IMPRESSION: 1. 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 2. No intracranial hemorrhage. 3. Right mastoid effusion. 4. Chronic right maxillary sinusitis. N.B. : Giulia Ramos RN, confirmed on 06/05/2022 05:53:38 (ET) that the healthcare facility has received the radiology report. Electronically Signed: Jorge Messina MD at 4:51 EST , Physical Exam Const alert and no apparent distress Orientation / Consciousness: awake HEENT normocephalic, head/scalp atraumatic and hearing grossly normal bilaterally Eyes PERRL, EOMs intact bilaterally, conjunctivae normal and no scleral icterus Neck full ROM, supple and no JVD Carotids: normal carotid upstroke Resp normal respiratory effort and clear to auscultation bilaterally Cardio S1 normal heart sound and S2 normal heart sound Rhythm: abnormal rhythm irregularly irregular GI normal to inspection, nondistended, normoactive bowel sounds Extremity no pedal edema Extremity Narrative: Right radial artery area: Pulse 2+/4+: No bruits: No hematoma Skin no rashes or lesions noted Neuro Neuro Narrative: The patient appears to be awake and alert. He is not oriented to place. His visual disturbance appears to be chronic according to family members present. He does not appear to have focal upper or lower extremity motor or sensory deficits at this time. Psych cooperative Assessment & Plan Assessment/Plan (1) CAD (coronary artery disease): PLAN: Patient has been diagnosed with underlying CAD. He will need to continue risk factor modification medical therapy as deemed appropriate. He has undergone evaluation with noninvasive and invasive studies. Cardiac catheterization did diagnose underlying CAD for which she underwent PTCA/stenting procedures. He will continue medical. This would agents such as aspirin 1 mg a day and his Plavix at 75 mill p.o. day. There are agents can be used as deemed appropriate depending upon his other ongoing medical issues. (2) S/P PTCA (percutaneous transluminal coronary angioplasty): PLAN: He is now status post coronary artery PTCA/stenting procedures. He will continue medical management which includes aspirin therapy and antiplatelet therapy with clopidogrel/Plavix. (3) Cardiac dysrhythmia: PLAN: He does have a finding compatible with underlying various cardiac dysrhythmias during and following his cardiac catheterization procedure. It is unclear whether these events have been there prior to his cardiovascular evaluation. At the moment he appears to be in atrial flutter with a controlled ventricular response. He will continue medical management. He was placed on IV heparin therapy. It appears there is been now a concern of the development of hematuria since initiation of IV heparin therapy. Thus the IV heparin will need to be discontinued. Without appropriate anticoagulation therapy he is not a candidate for any attempt at regaining sinus rhythm with synchronized biphasic DC cardioversion. Without anticoagulant therapy his risk of CVA does increase. (4) Non-ST elevation (NSTEMI) myocardial infarction: PLAN: The patient's cardiac enzymes are concerning for a non-ST segment elevation IA. He has undergone evaluation and care as noted. His transthoracic echocardiogram has been reviewed. His cardiac catheterization PCI procedures have been reviewed. His beta-rob has been placed on hold secondary to concerns of an underlying neurologic event and avoiding hypotension. (5) GERD (gastroesophageal reflux disease): PLAN: The patient states that he was diagnosed with GERD by an EGD in the past. He admits he did not stay on his PPI as recommended. It is unclear whether this is contributing to any of his symptoms at this time. He is being placed back on a PPI at this time. (6) CVA (cerebral vascular accident): PLAN: There is concern based upon the patient's brain CT scan and he did experience a CVA. The etiologies are multifactorial. It is unknown whether the patient has experienced the findings of his atrial dysrhythmia prior to hospitalization which would increase his risk of thromboembolic event and CVA. The patient has undergone invasive evaluation and care having been informed prior to the procedures of the potential risks of adverse events including CVA. It is unknown whether the patient has any underlying peripheral arterial occlusive disease that would be a contributing factor to this diagnosis. At the present time he is being monitored. His family members believe his overnight confusion has improved. They reiterate that his vision loss is a chronic issue and not new. They would like to minimize any medication that could potentially alter his mental status and lead to confusion. At the moment they are in agreement for further noninvasive evaluation of this event to help guide diagnosis and therapy. (7) Hematuria: PLAN: The patient has developed hematuria with reports of clots . This apparently started after initiation of IV heparin. Thus the IV heparin will be placed on hold. The patient may need further evaluation by urology. Addt'l Comments The patient's case was discussed and reviewed at length with the patient, his spouse, and his son as well as the [facility] ICU nursing staff, and Dr. Lin of the [facility] staff. The patient's multiple diagnoses and need for various therapies were discussed. This included the concern of his coronary disease and need for antiplatelet therapy, the concern for his atrial dysrhythmia and the need for anticoagulant therapy, the concern of a CVA and need for further neurologic evaluation, and the concern of hematuria and the need to discontinue anticoagulation therapy which could place the patient at a higher risk with his underlying atrial dysrhythmia for a thromboembolic event leading to CVA. The risks and benefits regarding his diagnosis and therapy were discussed with him at length. At the moment they appear to want to proceed with conservative medical management (minimizing medications as much as possible due to their concern that he does not tolerate medications well) and conservative noninvasive evaluation. Comment: Time spent in the patient's evaluation, examination, review of medical records, review of cardiovascular imaging studies, placing orders, documentation, discussion with the patient/family, discussion with the [facility] medical staff, etc.: 60 minutes Procedure Criteria Type of Procedure Procedure Type: Elective Elective Risks - COVID COVID Risk Discussion: The surgeon/proceduralist and patient have discussed in detail the risk of exposure to and/or potential harm posed by the COVID-19 virus with having a surgery/procedure at this time versus the risk of delaying the surgery/procedure. It is not possible to know either the risk of delaying the surgery or procedure or chance of getting an infection with perfect accuracy, but a joint decision was made between the patient and the surgeon/proceduralist to proceed at this time with the scheduled surgery/procedure as indicated on the consent form.
--- NOTE | 2022-06-05 10:22 | NURSING ---
MRI scheduled for noon, ativan to be given at 1130
[2022-06-05] MEDS: LORazepam 2 MG/ML Syringe 1 MG IV (11:39)
--- NOTE | 2022-06-05 11:55 | NURSING ---
Transferred off floor in wheelchair by neurology technologist for MRI.
--- NOTE | 2022-06-05 18:19 | PN_ITS ---
Subjective Subjective Patient seen and examined. Patient was noted to be more confused overnight and a CT of the brain that was concerning for stroke. He was also going into A-fib with RVR so he was placed on heparin drip. He subsequently started having hematuria. Patient's son and were by his bedside. He had no active complaints. 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 Review of systems otherwise negative. Of note, during the cardiac cath yesterday patient was noted to have a brief moment of asystole but this resolved after he coughed. Overnight patient was also noted to be bradycardic intermittently. However later today his bradycardia worsened with a heart rate going down to the 20s sometimes. Cardiology therefore transferring him to [facility] for evaluation for pacemaker. Objective Data Objective Data Vital Signs: Vital Signs Temp Pulse Resp BP Pulse Ox O2 Del Method O2 Flow Rate 98.6 F 60 17 104/64 99 Room Air 2 06/05/22 17:45 06/05/22 17:45 06/05/22 17:45 06/05/22 17:45 06/05/22 17:45 06/05/22 17:45 06/04/22 13:30 FiO2 2 06/04/22 11:28 Oxygen Flow Rate (L/min) 2 Oxygen Delivery Method Room Air Weight: 133 lb 13.129 oz Body Mass Index (BMI) 20.9 Intake & Output: Intake and Output for Last 24 Hours 06/03/22 06/04/22 06/05/22 23:59 23:59 23:59 Intake Total 300 / 300 1000 / 1060 1125.58 / 1125.58 Output Total 800 / 1400 1500 / 1500 Balance 300 / 300 200 / -340 -374.42 / -374.42 Lab / Micro Data Result Diagrams: 06/05/22 02:19 06/05/22 02:19 Labs: Laboratory Results - last 24 hr 06/04/22 19:34: PT 15.2 H, INR 1.2, APTT 34.9 06/05/22 02:19: Sodium 136, Potassium 3.8, Chloride 105, Carbon Dioxide 22.0, Anion Gap 9, BUN 16, Creatinine 1.11, Estim Creat Clear Calc 41.01, Est GFR (MDRD) Af Amer 81, Est GFR (MDRD) Non-Af 67, BUN/Creatinine Ratio 14.4, Glucose 163 H, Calcium 8.4 L, Total Bilirubin 0.90, AST 20, ALT 16, Alkaline Phosphatase 24 L, Total Protein 7.3, Albumin 2.9 L, Globulin 4.4 H, Albumin/Globulin Ratio 0.7 L 06/05/22 02:19: WBC 16.2 H, RBC 4.00 L, Hgb 12.7 L, Hct 37.6 L, MCV 94.0, MCH 31.8, MCHC 33.8, RDW Std Deviation 46.3 H, RDW Coeff of Luis Alberto 13.4, Plt Count 238, MPV 9.2, Immature Gran % (Auto) 0.700, Neut % (Auto) 80.5 H, Lymph % (Auto) 3.3 L, Harnett % (Auto) 15.3 H, Eos % (Auto) 0.0, Baso % (Auto) 0.2, Absolute Neuts (auto) 13.0 H, Absolute Lymphs (auto) 0.54 L, Nucleated RBC % 0, Diff Path Review July06/05/22 02:19: APTT 54.4 H 06/05/22 02:19: Magnesium 2.0, TSH 3.67 06/05/22 02:32: Urine Color Yellow, Urine Clarity Sl. Cloudy, Urine pH 6.0, Ur Specific Villard 1.015, Urine Protein 30 H, Urine Glucose (UA) Normal, Urine Ketones 50 H, Urine Occult Blood 250 H, Urine Nitrite Negative, Urine Bilirubin Negative, Urine Urobilinogen Normal, Ur Leukocyte Esterase Negative, Urine RBC > 100 SEEN, Urine WBC 0-5 SEEN, Ur Squamous Epith Cells 0 SEEN, Urine Bacteria 0 SEEN, Urine Mucus 0 SEEN Radiography Diagnostic Testing: Radiology Impression Brain CT 06/05/22 03:01 IMPRESSION: 1. 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 2. No intracranial hemorrhage. 3. Right mastoid effusion. 4. Chronic right maxillary sinusitis. Electronically Signed: Jorge Messina MD at 4:51 EST , ADDENDUM: 06/05/22 0601 IMPRESSION: 1. 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 2. No intracranial hemorrhage. 3. Right mastoid effusion. 4. Chronic right maxillary sinusitis. N.B. : Giulia Ramos RN, confirmed on 06/05/2022 05:53:38 (ET) that the healthcare facility has received the radiology report. Electronically Signed: Jorge Messina MD at 4:51 EST , Brain MRI 06/05/22 05:26 IMPRESSION: 1. 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 2. Multiple chronic white matter ischemic changes in both cerebral hemispheres. 3. Non-coalescent mucosal edema in the right temporal mastoid bones and chronic right maxillary sinusitis. Electronically Signed: Carlos Loaiza MD at 13:39 EST , ADDENDUM: 06/05/22 1351 IMPRESSION: 1. 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 2. Multiple chronic white matter ischemic changes in both cerebral hemispheres. 3. Non-coalescent mucosal edema in the right temporal mastoid bones and chronic right maxillary sinusitis. N.B. : The above Results were Read Back by Carlos Loaiza MD to Sera Aden RN, and understanding confirmed on 06/05/2022 13:45:07 (ET). Electronically Signed: Carlos Loaiza MD at 13:39 EST , Carotid Duplex 06/05/22 05:26 Interpretation Summary Intimal thickening at the proximal right internal carotid artery with less than 50% stenosis Less than 50% stenosis right external carotid artery Smooth plaque at the proximal left internal carotid artery with less than 50% stenosis Less than 50% stenosis left external carotid artery Patent and antegrade vertebral arteries bilaterally Ordering Physician: Lexie Lin Referring Physician: Theo Francois Performed By: Emilie Hopper RVT Head MRA 06/05/22 05:27 IMPRESSION: Normal MRA of the head but limited since only the proximal M2 segments are included in the scan. This MRA does not include the thromboembolic occlusion and infarction of the right superior and inferior parietal lobules and the right lateral occipitotemporal gyrus. CTA head and neck will be more helpful if desired. Electronically Signed: Carlos Loaiza MD at 13:43 EST , Rhythm Strip Rhythm Strip: Sinus Rhythm Rate: 85 Ectopy: None Physical Exam Const alert, oriented x3, no apparent distress and average body habitus General Appearance: cooperative HEENT normocephalic, head/scalp atraumatic and hearing grossly normal bilaterally Eyes PERRL, EOMs intact bilaterally and conjunctivae normal Neck no lymphadenopathy and supple Lymph Lymphatic: no lymphadenopathy noted Resp normal respiratory effort, normal air movement, no retractions, no use of accessory muscles and clear to auscultation bilaterally Cardio regular rhythm, S1 normal heart sound, S2 normal heart sound and no murmurs Cardio Narrative: bradycardia GI normal to inspection, nondistended, normoactive bowel sounds, soft to palpation, non-tender and non-distended Extremity normal to inspection, full ROM and no clubbing, cyanosis or edema Skin General Skin Exam: no breakdown Neuro oriented x3, CN's II-XII intact bilaterally, moves all extremities and no focal motor deficits Sensorium / Orientation: awake and alert Motor Exam: strength 5/5 throughout Psych affect normal Assessment & Plan Assessment/Plan (1) Chest pain: (2) Elevated troponin: (3) Non-ST elevation (NSTEMI) myocardial infarction: PLAN: Plan #Nonstemi * had cardiac cath which showed multivessel CAD. He had PCI with placement of stents in the proximal LAD. * Patient on aspirin and Plavix as well as high intensity statin. * Cardiology on board. * 2D echo showed EF of 50% with mildly enlarged left atrium and RVSP of 31 mmHg and indeterminate diastolic function. * #Acute CVA * Patient became more confused overnight and CT of the brain was done which was concerning for CVA. He was also noted to be in paroxysmal A-fib throughout the night. * He had MRI of the brain done today which did confirm CVA. * [facility] teleneurology reviewed patient and confirmed the stroke but recommended holding off on blood thinners on account of the ischemic stroke being quite significant. To hold blood thinners until after 1 week when a repeat CT should be done before he started on a blood thinner. This is to evaluate for possible hemorrhagic transformation. * On high intensity statin as well as aspirin and Plavix * PT OT on board. Fall precautions. * #Bradycardia * Patient noted to be bradycardic with heart rate going down to the 20s occasionally. * Cardiology on board and recommendations for patient to be transferred for evaluation for pacemaker. Patient to be transferred to [facility]. * #Hematuria: * Patient subsequently developed hematuria after he was started on the heparin drip. This is new onset. Heparin drip subsequently discontinued later today. We will continue monitoring for hematuria as he may have been due to a blood thinner and consult urology for evaluation if patient remains here. * #DVT prophylaxis: SCDs Disposition: Transfer to [facility] for evaluation for pacemaker C Charges/Coding Visit Charges Inpatient E&M: 68960 [facility] Hosp L3
[2022-06-05] MEDS: Atorvastatin Calcium 40 MG Tablet PO (20:21)
--- NOTE | 2022-06-05 20:40 | NURSING ---
Called report to TERRI Marin at [facility].
--- NOTE | 2022-06-05 23:09 | NURSING ---
Report given to [facility].
--- NOTE | 2022-06-06 07:35 | PCM.DC.SUM ---
Providers Date of Admission: 06/03/22 Date of Discharge: 06/06/22 Primary Care Physician: Dr. Theo Francois, Consultations 06/03/22 16:58 Consult: Cardiology Routine Consulting Provider: Moy Bahena Reason for Consult: elevated troponin, chest pain EMERGENT Consult: No MD Notified: Yes Date Notified: 06/03/22 Time Notified: 15:30 Method of Notification: Text Reason For Visit: CHEST PAIN, ELEVATED TROPONIN Diagnosis Discharge Diagnosis (1) Chest pain: Status: Acute Code(s): R07.9 - Chest pain, unspecified (2) Elevated troponin: Status: Acute Code(s): R77.8 - Other specified abnormalities of plasma proteins (3) Non-ST elevation (NSTEMI) myocardial infarction: Status: Acute Code(s): I21.4 - Non-ST elevation (NSTEMI) myocardial infarction Plan #Nonstemi had cardiac cath which showed multivessel CAD. He had PCI with placement of stents in the proximal LAD. Patient on aspirin and Plavix as well as high intensity statin. Cardiology on board. 2D echo showed EF of 50% with mildly enlarged left atrium and RVSP of 31 mmHg and indeterminate diastolic function. #Acute CVA Patient became more confused overnight and CT of the brain was done which was concerning for CVA. He was also noted to be in paroxysmal A-fib throughout the night. He had MRI of the brain done today which did confirm CVA. [facility] [place] teleneurology reviewed patient and confirmed the stroke but recommended holding off on blood thinners on account of the ischemic stroke being quite significant. To hold blood thinners until after 1 week [address] a repeat CT should be done before he started on a blood thinner. This is to evaluate for possible hemorrhagic transformation. On high intensity statin as well as aspirin and Plavix PT OT on board. Fall precautions. #Bradycardia Patient noted to be bradycardic with heart rate going down to the 20s occasionally. Cardiology on board and recommendations for patient to be transferred for evaluation for pacemaker. Patient to be transferred to [facility]. #Hematuria: Patient subsequently developed hematuria after he was started on the heparin drip. This is new onset. Heparin drip subsequently discontinued later today. We will continue monitoring for hematuria as he may have been due to a blood thinner and consult urology for evaluation if patient remains here. #DVT prophylaxis: SCDs Disposition: Transfer to [facility] for evaluation for pacemaker C Medications at Discharge Home Medications omeprazole magnesium 20 mg tablet,delayed release (Prilosec OTC) 20 mg PO QWEEK GERD 06/03/22 Hospital Course Operations None Procedures 2-D Echocardiogram and Cardiac catheterization Summary of Care Provided Minutes Spent on Discharge: 45 Hospital Course: JEREMY GONZALEZ, is a 86 M with a PMH as outlined? who presents via the ED on 06/03/2022 with a complaint of chest pain. Chest pain had been going on for several days. He says he used a vibrating device for back pain and he thought it had stimulated palpitations. He subsequently started having chest pain which had been going for several days.? He had nausea or shortness of breath or increased sweating and pain did not radiate anywhere.? He has not had any heart disease in the past.? Review of systems otherwise negative. Vitals in the ED were blood pressure 105/57, pulse rate of 74, respiratory rate of 18 and oxygen sats of 96% on room air.? CBC showed WBC of 12.9 and hemoglobin of 13.1 as well as platelets of 233.? Chemistry showed sodium of 135 with BUN of 20 and creatinine of 1.3.? Initial troponin was 116.? Chest x-ray showed no acute cardiopulmonary process and EKG showed no acute ST changes.? He has been admitted to be managed for chest pain rule out ACS. He had cardiac cath which showed multivessel CAD.? He had PCI with placement of stents in the proximal LAD. Patient was placed on aspirin and Plavix as well as high intensity statin. He had a a 2D echo which showed EF of 50% with mildly enlarged left atrium and RVSP of 31mmhg and indeterminate diastolic function. Hospital course was complicated by overnight confusion and had CT of the brain which was concerning for CVA. He also developed A-fib. He had MRI of the brain which she did indeed confirm CVA. [facility] teleneurology was consulted and confirmed the stroke but recommended holding off on blood thinners due to the significance of the ischemic stroke. Patient was initially started on heparin drip but this was discontinued. Patient again became bradycardic with heart rate going down to the 20s. Cardiology reviewed patient and recommended transfer to tertiary facility for pacemaker insertion. He was transferred to [facility] on 06/06/2022. Patient was seen and examined prior to discharge. Family was by his bedside. He had no active complaints. 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 Review of systems is otherwise negative. Labs and vitals reviewed. Home meds reviewed and reconciled. Physical Exam Const alert, oriented x3, no apparent distress and average body habitus General Appearance: cooperative and comfortable Orientation / Consciousness: awake Exam Limitations: no limitations HEENT normocephalic, head/scalp atraumatic and hearing grossly normal bilaterally Eyes PERRL, EOMs intact bilaterally and conjunctivae normal Neck no lymphadenopathy and supple Lymph Lymphatic: no lymphadenopathy noted Resp normal respiratory effort, normal air movement, no retractions, no use of accessory muscles and clear to auscultation bilaterally Cardio regular rhythm, S1 normal heart sound, S2 normal heart sound and no murmurs Cardio Narrative: bradycardia GI normal to inspection, nondistended, normoactive bowel sounds, soft to palpation, non-tender and non-distended Extremity normal to inspection, full ROM and no clubbing, cyanosis or edema Skin General Skin Exam: no breakdown Neuro oriented x3, CN's II-XII intact bilaterally, moves all extremities and no focal motor deficits Sensorium / Orientation: awake and alert Motor Exam: strength 5/5 throughout Psych affect normal Weight / BMI Weight Weight: 133 lb 13.129 oz Body Mass Index (BMI) 20.9 ABG / Lab / Microbiology Data Result Diagrams: 06/05/22 02:19 06/05/22 02:19 Radiography Diagnostic Testing: Radiology Impression Brain MRI 06/05/22 05:26 IMPRESSION: 1. 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 2. Multiple chronic white matter ischemic changes in both cerebral hemispheres. 3. Non-coalescent mucosal edema in the right temporal mastoid bones and chronic right maxillary sinusitis. Electronically Signed: Carlos Loaiza MD at 13:39 EST , ADDENDUM: 06/05/22 [id number] IMPRESSION: 1. 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 2. Multiple chronic white matter ischemic changes in both cerebral hemispheres. 3. Non-coalescent mucosal edema in the right temporal mastoid bones and chronic right maxillary sinusitis. N.B. : The above Results were Read Back by Carlos Loaiza MD to Sera Aden RN, and understanding confirmed on 06/05/2022 13:45:07 (ET). Electronically Signed: Carlos Loaiza MD at 13:39 EST , Carotid Duplex 06/05/22 05:26 Interpretation Summary Intimal thickening at the proximal right internal carotid artery with less than 50% stenosis Less than 50% stenosis right external carotid artery Smooth plaque at the proximal left internal carotid artery with less than 50% stenosis Less than 50% stenosis left external carotid artery Patent and antegrade vertebral arteries bilaterally Ordering Physician: Lexie Lin Referring Physician: Theo Francois Performed By: Emilie Hopper RVT Head MRA 06/05/22 05:27 IMPRESSION: Normal MRA of the head but limited since only the proximal M2 segments are included in the scan. This MRA does not include the thromboembolic occlusion and infarction of the right superior and inferior parietal lobules and the right lateral occipitotemporal gyrus. CTA head and neck will be more helpful if desired. Electronically Signed: Carlos Loaiza MD at 13:43 EST , D/C Instructions Discharge Diet: Low fat / Low cholesterol Discharge Activity: Return to Normal Activity Weight Bearing Status: Weight bearing as tolerated Call your doctor if you observe: Fever of 101 or Higher, Shortness of breath, Dizziness, Swelling in the ankles, Chest pain and Increased palpitations (irregular heartbeat) Meaningful Use Info Meaningful Use Diagnoses (Choose all that apply): AMI and Ischemic CVA AMI/Post PCI/Angioplasty Aspirin given w/in 24hrs of arrival?: Yes ASA at discharge?: Yes Antiplatelet Therapy at Discharge:: Yes Statins at discharge?: Yes Monico/ARB at discharge?: No Reason Monico/ARB not ordered:: Not indicated (transferred to tertiary facility) Beta Coy at discharge?: No Reason Beta Coy not ordered:: Allergy (transferred to tertiary facility) Done w/ Acute IL measure.: Yes Documented LVEF (%): 50 CVA Therapy Assessed for PT,OT and/or ST?: Yes Ischemic Stroke Antithrombotic order at d/c?: Yes Dx of Atrial fib/flutter?: Yes Anticoagulant at discharge?: No Reason anticoagulant not ordered: Medical Contraindication (acute CVA) Statins at discharge?: No Reason Statin not ordered: Treatment not Indicated (transferred to tertiary facility) Primary Dx Acute Ischemic CVA?: Yes IV thrombolytic ordered during stay?: No Reason IV thrombolytic not ordered: Medical Contraindication Discharge Plan Admission Admit Date/Time: 06/03/22 15:26 Primary Reason for Your Visit: acute IL, acute CVA Attending Provider: Betzaida Larsen Primary Care Provider: Theo Francois Consulting Providers: Moy Bahena Discharge Orders/Prescriptions Prescriptions: No Action omeprazole magnesium [Prilosec OTC] 20 mg Tablet,Delayed Release (Dr/Ec) 20 mg PO QWEEK Referrals / Follow Up: Theo Francois DO [Primary Care Provider] - Disposition Disposition (needs filled in before D/C Order can be placed): Acute Care Hospital Charges/Coding Visit Charges Inpatient E&M: 89908 Disch Hosp >30min
[2022-06-08 09:01] LABS: Pathologist Review Reviewed
== END 2022-06-05 23:18 | disposition short-term general hospital (02) | DRG 246 ==
LOC: ED 15:21 → PCU 15:37 → ICU 06-04 11:43
PROVIDERS: Family Medicine; Internal Medicine Cardiovascular Disease; Admitting Provider Student in an Organized Health Care Education/Training Program; Emergency Provider Emergency Medicine; PCP Family Medicine; Visit Provider Student in an Organized Health Care Education/Training Program
DX: I21.4 Non-ST elevation (NSTEMI) myocardial infarction (principal); I63.133 Cerebral infarction due to embolism of bilateral carotid arteries; I48.0 Paroxysmal atrial fibrillation; I25.10 Atherosclerotic heart disease of native coronary artery without angina pectoris; K21.9 Gastro-esophageal reflux disease without esophagitis; R00.1 Bradycardia, unspecified; R31.9 Hematuria, unspecified; Z95.5 Presence of coronary angioplasty implant and graft; Z79.02 Long term (current) use of antithrombotics/antiplatelets; Z79.82 Long term (current) use of aspirin; Z79.899 Other long term (current) drug therapy; Z86.73 Personal history of transient ischemic attack (TIA), and cerebral infarction without residual deficits
CPT/HCPCS: 36415; 70450; 70544; 70551; 71045; 80048; 80053; 80061; 81001; 83036; 83735; 84443; 84484; 85025; 85347; 85610; 85730; 87086; 92610; 92928; 93005; 93306; 93454; 93880; 97162; 97166; 99152; 99153; 99285; J7030; J7040; Q9967; A4216; C1725; C1769; C1874; C1887; C1894; C9600; J1327

== ENCOUNTER 2024-03-11 06:53 | Emergency (ER) | payer OTHER, SELFPAY ==
[2024-03-11 06:54] VITALS: BP 156/91; PULSE 81; RESP 19; TEMP 36.1; O2SAT 84; BMI 21.4
--- NOTE | 2024-03-11 06:56 | CT_ITS ---
We are attempting to reach an attending provider to discuss findings. An addendum with communication details will be sent when the communication is complete. EXAM: CT HEAD WITHOUT INTRAVENOUS CONTRAST CLINICAL INDICATION: Neuro deficit, acute, stroke suspected TECHNIQUE: Multiple axial images were obtained of the head without intravenous contrast. This CT exam was performed using one or more of the following dose reduction techniques: automated exposure control, adjustment of the mA and/or kV according to patient size, and/or use of iterative reconstruction technique. COMPARISON: MR brain 06/05/2022. FINDINGS: BRAIN AND EXTRA-AXIAL SPACES: Very large left frontoparietal intraparenchymal hematoma measuring 7 x 5.8 x 6 cm with surrounding vasogenic edema. The hematoma extends to and ruptures into the left lateral ventricle with blood in the lateral ventricle, 3rd ventricle, and 4th ventricle. There is significant mass effect with effacement of the left lateral ventricle and midline shift to the right measuring about 6 mm. Severe generalized atrophy. Severe low density bilaterally in the deep white matter. 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 Posterior fossa structures are unremarkable. Basal cisterns are patent. BONES/JOINTS: Unremarkable. No discrete lytic or blastic abnormalities. SINUSES: Opacification of the right maxillary sinus. MASTOID AIR CELLS: Unremarkable. Clear. ORBITS: Visualized globes, extraocular muscles, optic nerves and retrobulbar fat appear unremarkable. CT/STROKE Brain/Head without Cont IMPRESSION: 1. Large left frontoparietal intraparenchymal hematoma measuring 7 x 5.8 x 6 cm with surrounding vasogenic edema and mass effect including effacement of the left lateral ventricle and 6 mm of [id number] shift. There is rupture of the hematoma into the left lateral ventricle with blood in the lateral ventricle, 3rd ventricle, and 4th ventricle. 2. Severe generalized atrophy. Severe low density bilaterally in the deep white matter. This likely represents chronic small vessel ischemic changes in the deep white matter. 3. 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 Electronically Signed: Get Pina MD at 7:13 EST ,
[2024-03-11] MEDS: Ondansetron 4 MG/2 ML Vial IV (07:01)
[2024-03-11 07:06] VITALS: BP 156/91; PULSE 75; RESP 19; TEMP 36.1; O2SAT 90
[2024-03-11 07:09] LABS: Hematocrit 40.6 % (40-54); Hemoglobin 13.6 g/dL (13.0-16.5); Mean Corp Hgb Conc 33.5 g/dL (32-36); Mean Corpuscular Hgb 29.4 pg (27.0-32.0); Mean Corpuscular Volume 87.9 fL (80-94); Mean Platelet Vol. 10.3 fl (6.2-12.0); POSITIVE COUNT YES; POSITIVE DIFFERENTIAL YES; POSITIVE MORPHOLOGY YES; Platelet Count 428 K/mm3 (150-450); RBC Distribution Width CV 16.1 % (11.6-14.6); RBC Distribution Width SD 51.9 fl (35.1-43.9); Red Blood Count 4.62 M/mm3 (4.6-6.2); White Blood Count 36.6 K/mm3 (4.4-11.0)
[2024-03-11 07:11] LABS: Differential Indicated MANUAL DIFF
[2024-03-11 07:14] VITALS: BP 147/79; PULSE 96; RESP 20; O2SAT 88; O2SAT 89
[2024-03-11 07:16] VITALS: BMI 21.4
--- NOTE | 2024-03-11 07:22 | ED.VIS.STROK ---
HPI History of Present Illness Chief Complaint: Stroke Alert Detail of Chief Complaint: Last known well at 0630, not acting appropriate, vomiting less responsive Informant: EMS Onset/Context/Timing Onset: Today and Hours (0630) Context: Sudden Onset Timing: Continuous Onset: GCS 6 Current Severity: Severe Maximum Severity: Severe Worsened by: Not applicable Relieved by: Nothing Narrative Narrative: Patient is an 88-year-old male. He has a history of coronary artery disease with a non-STEMI May 2022. Cath revealed lesion in the first diagonal of approximate 75% and mid LAD of approximately 85% per Dr. Bahena's cath report. Patient had carotid ultrasound performed last year as well which revealed less than 50% lesion with smooth plaque proximal right internal jugular and smooth plaque left internal jugular. These were reviewed prior to patient's arrival since name was known. Patient was met in the entrance. Patient has a GCS of 5. Patient has vomited 3 times and route. Suspect patient is an intracranial bleed even though his pressure is not markedly elevated. Prior similar symptoms: No Recent Illness/Hospitalization: No PFSH PFSH Medical History Hematuria CVA (cerebral vascular accident) Cardiac dysrhythmia CAD (coronary artery disease) Atherosclerosis of coronary artery of [place] heart without angina pectoris GERD (gastroesophageal reflux disease) Non-ST elevation (NSTEMI) myocardial infarction Elevated troponin Chest pain GERD (gastroesophageal reflux disease) Home Medications ?Medication ?Instructions ?Recorded ?Last Taken ?Type omeprazole magnesium 20 mg 20 mg PO QWEEK GERD 06/03/22 06/03/22 History tablet,delayed release (Prilosec OTC) Allergy/AdvReac Type Severity Reaction Status Date / Time No Known Allergies Allergy Verified 03/11/24 06:54 Surgical History S/P PTCA (percutaneous transluminal coronary angioplasty) History of coronary artery stent placement (~06/04/22) History of appendectomy Social History Smoking Status: Never smoker EXAM Physical Exam Const Vital Signs: 03/11/24 06:54 03/11/24 07:06 03/11/24 07:14 Temperature 97.0 F L 97.0 F L Temperature Source Temporal Temporal Pulse Rate 81 75 Respiratory Rate 19 H 19 H Blood Pressure 156/91 H 156/91 H Blood Pressure Mean 112 112 Pulse Ox 84 90 88 Oxygen Delivery Method Nasal Cannula Nasal Cannula Nasal Cannula Oxygen Flow Rate (L/min) 6 6 6 03/11/24 07:14 Temperature Temperature Source Pulse Rate 96 Respiratory Rate 20 H Blood Pressure 147/79 H Blood Pressure Mean 101 Pulse Ox 89 Oxygen Delivery Method Nasal Cannula Oxygen Flow Rate (L/min) 6 Positive well nourished and well developed Constitutional Narrative: Chest pain is not labored. Pupils are 2 mm size. There is deviation of his eyes to the left. General Appearance ED: well developed HEENT Reports moist mucous membranes atraumatic Eyes Eyes Narrative: 2 mm size. They are nonreactive. There is no nystagmus. There is deviation to the left. Neck no lymphadenopathy and no JVD Chest Wall inspection of chest normal Resp normal respiratory effort Auscultation: rales right mid and lower Cardio no murmurs Rate: regular rate Rhythm: regular rhythm GI normal to inspection, nondistended, normoactive bowel sounds, soft to palpation, non-distended and no masses Extremity normal to inspection General Extremety ED: Negative for deformity or edema General Extremity: Negative for deformity or edema Neuro No oriented x3, No CN's II-XII intact bilaterally and No no sensory deficits noted Jessica Coma Scale: document GCS findings None Withdraws to Pain None 6 Psych Psych Narrative: Unable to determine Skin Skin Narrative: He appears pale. NIHSS NIHSS Initial: 1a Level of Consciousness: 3 1b LOC Questions (Score 2 if aphasic/stupor): 2 1c LOC Commands (Only score 1st attempt): 2 2 Best Gaze (If aphasic, use reflexive mvmts.): 1 3 Visual: 1 4 Facial Palsy: 0 5 Motor Arm Right (UN = amputation/fusion): 4 5 Motor Arm Left: 2 6 Motor Leg Right: 4 6 Motor Leg Left: 2 7 Limb ataxia (Only + if out of proportion): UN (Patient GCS is 6.) 8 Sensory (Aphasia/stupor=0 or 1, coma=2): 1 9 Best Language: 3 10 Dysarthria (mute, coma=2, intubated=UN): 2 11 Extinction and Inattention (only scored if +): 0 Total Score: 27 MDM MDM MDM Narrative Medical decision making narrative: Stroke order set was initiated. Concern patient has intracranial bleed in light of the rapid deterioration and the fact that he is vomited total of 4 times prior to arrival once at home and 3 times in the ambulance. CT reveals a large intracranial hemorrhage left frontal parietal area that measures 7 x 5.5 by approximately 6 cm. There is evidence of vasogenic edema and mass effect with effacement of sulci and ventricles. There is also intraventricular blood noted. Based on the intracranial hemorrhage scoring system patient mortality is 100%. Patient has evidence of multiple prior strokes, as well Family was told when I initially saw the scan in the radiology suite that he has a large hemorrhage and findings are incompatible with life. states he would not want to be on life support or to be resuscitated. In light of this patient was made DNR comfort care only and hospice was contacted after having discussion with and son. I did receive a call from the radiologist that confirmed Earnest interpretation of his CAT scan. Patient's pulse ox is low. Suspect he aspirated when he vomited. History & Record Review Discussion w/independent historian: Family Lab Data Attestation: I reviewed the patient's lab results. Lab results narrative: White count is elevated at 36.6 thousand. Platelet count is normal. H&H is normal. Electrolyte panel reveals a potassium of 3.3. Glucose is elevated 183 with a normal CO2 anion gap. Troponin is elevated 182. This is in all likelihood due to the marked intracranial hemorrhage with mass effect. Coags are normal. Labs: Laboratory Results - last 24 hr 03/11/24 07:00 WBC 36.6 H* RBC 4.62 Hgb 13.6 Hct 40.6 MCV 87.9 MCH 29.4 MCHC 33.5 RDW Std Deviation 51.9 H RDW Coeff of Luis Alberto 16.1 H Plt Count 428 MPV 10.3 Neut % (Auto) Not Reportable Absolute Neuts (auto) 29.6 H Absolute Lymphs (auto) 2.92 Total Counted 100 Neutrophils % (Manual) 78 H Band Neutrophils % 3 Lymphocytes % (Manual) 8 L Monocytes % (Manual) 2 Metamyelocytes % 7 H Myelocytes % 2 H Diff Path Review May foll Hypersegmented Neuts 1+ H Platelet Estimate ADEQUATE RBC Morphology NORM C+C PT 14.6 INR 1.1 APTT 28.4 Sodium 137 Potassium 3.3 L Chloride 105 Carbon Dioxide 24.0 Anion Gap 9 BUN 19 H Creatinine 1.20 Estim Creat Clear Calc 37.50 Est GFR (MDRD) Af Amer 73 Est GFR (MDRD) Non-Af 61 BUN/Creatinine Ratio 15.8 Glucose 183 H Calcium 9.0 Troponin I High Sens 182 H* Radiography Chest X-Ray - ED: - (Chest x-ray was canceled since patient was made DNR comfort care only.) Diagnostic Testing: Clinical Impression(s) from Imaging Studies Brain CT 03/11/24 06:56 IMPRESSION: 1. Large left frontoparietal intraparenchymal hematoma measuring 7 x 5.8 x 6 cm with surrounding vasogenic edema and mass effect including effacement of the left lateral ventricle and 6 mm of [id number] shift. There is rupture of the hematoma into the left lateral ventricle with blood in the lateral ventricle, 3rd ventricle, and 4th ventricle. 2. Severe generalized atrophy. Severe low density bilaterally in the deep white matter. This likely represents chronic small vessel ischemic changes in the deep white matter. 3. 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 Electronically Signed: Gte Pina MD at 7:13 EST , ADDENDUM: 03/11/24 0721 IMPRESSION: 1. Large left frontoparietal intraparenchymal hematoma measuring 7 x 5.8 x 6 cm with surrounding vasogenic edema and mass effect including effacement of the left lateral ventricle and 6 mm of [id number] shift. There is rupture of the hematoma into the left lateral ventricle with blood in the lateral ventricle, 3rd ventricle, and 4th ventricle. 2. Severe generalized atrophy. Severe low density bilaterally in the deep white matter. This likely represents chronic small vessel ischemic changes in the deep white matter. 3. 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 N.B. : The above Results were Read Back by Get Pina MD to Orestes Manuel MD, and understanding confirmed on 03/11/2024 07:14:47 (ET). Electronically Signed: Get Pina MD at 7:13 EST , Management Discussion w/another healthcare provider: Radiologist (Radiologist contacted me regarding the CAT scan results.) and Other (Spoke with nurse at hospice. Nurse will be in the emergency department approximately 0830.) Treatment and Re-Evaluation Narrative: The stroke nurse from [facility] called. I informed her that patient was made DNR and that we did not need to speak with the [facility] stroke neurologist. Hospice has met with family. They are making arrangements to have equipment brought to his home. Stroke Documentation Questions Stroke Team Activated: Yes Reviewed Inclusion/Exclusion criteria: Yes Was Patient considered for Endovascular Intervention?: No-CTA not indicated (Large intracranial hemorrhage) IV Thrombolytic Administered: No No contraindications from thrombolytic administration: No Critical Care Time Critical Care Time: Yes Critical care time (excluding procedures): 30-74 minutes (19), Including time spent: (History, physical, review of records prior to arrival, documentation, discussion with and family regarding severity of illness), Discussing w/Patient &/or Family/Well Head Pumper (Discussion regarding CODE STATUS), Discussing w/Consultants and Arranging Admission or Transfer Discharge Plan Triage Chief Complaint: Stroke Alert ED Provider: Orestes Manuel Dx/Rx/DC Orders Clinical Impression: 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
--- NOTE | 2024-03-11 07:36 | ED.RN ---
FAMILY DECIDED TO MAKE THE PT A DNRCC, HOSPICE ENROUTE TO SEE PT. PT [id number] FROM [facility] AND [facility] AND VS COMPLETED. PT IS CONTINUING TO BE MONITORED FOR COMFORT CARE
[2024-03-11 07:39] LABS: Anion Gap 9 (5-15); BUN 19 mg/dL (7-18); BUN/Creat Ratio 15.8 RATIO (10-20); Chloride 105 mmol/L (98-107); EST Glomerular Filtration Rate 61 mL/min (>60); Est Glom Filt Rate - Afr Amer 73 mL/min (>60); Glucose 183 mg/dL (74-106); International Normalized Ratio 1.1; Potassium 3.3 mmol/L (3.5-5.1); Prothrombin Time (Protime)PT. 14.6 SECONDS (11.7-14.9); Sodium Level 137 mmol/L (136-145); Troponin-I HS 182 pg/mL (3.0-78.0)
[2024-03-11 07:46] LABS: Lymphocyte 8 % (19-41); Metamyelocyte 7 % (0-1); Monocyte 2 % (0-10); Myelocyte 2 % (0-0); Neutrophil-Band 3 % (0-5); Neutrophil-Segmented 78 % (47-70); Total Cells Counted 100 (MANUAL DIFF)
[2024-03-11 07:48] LABS: Hypersegmented Neutrophils 1+; Platelet Estimate ADEQUATE (ADEQ); Red Cell Morphology NORM C+C NORMAL (NORM C&C)
[2024-03-11 07:49] LABS: Absolute Neutrophil Count 29.6 X10^3/uL (2.0-7.7)
[2024-03-11 07:50] LABS: Absolute Lymphocyte Count 2.92 X10^3/uL (0.83-4.51)
[2024-03-11 08:20] LABS: Partial Thromboplast Time 28.4 Seconds (24.1-36.2)
--- NOTE | 2024-03-11 09:00 | ED.RN ---
HOSPICE AT BEDSIDE
[2024-03-11 11:13] VITALS: O2SAT 89
[2024-03-14 15:13] LABS: Pathologist Review Reviewed
== END 2024-03-11 12:19 | disposition hospice, home (50) ==
PROVIDERS: Emergency Provider Emergency Medicine; PCP Family Medicine; Visit Provider Emergency Medicine
DX: G81.94 Hemiplegia, unspecified affecting left nondominant side (principal); J69.0 Pneumonitis due to inhalation of food and vomit; J96.01 Acute respiratory failure with hypoxia; I25.10 Atherosclerotic heart disease of native coronary artery without angina pectoris; R03.0 Elevated blood-pressure reading, without diagnosis of hypertension; Z66 Do not resuscitate
CPT/HCPCS: 70450; 80048; 84484; 85025; 85610; 85730; 99285